=== PATIENT | male | born 1935 | race Caucasian/White ===

== ENCOUNTER 2019-08-10 09:36 | Outpatient (CLI) | payer MEDICARE, SELFPAY ==
[2019-08-10 09:49] LABS: Hematocrit 33.5 % (37.0-46.0); Hemoglobin 10.6 g/dL (12.4-15.3); Mean Corpuscular HGB Conc 31.6 g/dL (32.0-36.0); Mean Corpuscular Hemoglobin 29.6 pg (27.0-31.0); Mean Corpuscular Volume 93.6 fL (78.0-102.0); Mean Platelet Volume 9.4 fl (8.7-11.0); Platelet Count Result 224 K/mm3 (150-420); Red Blood Count 3.58 M/mm3 (4.70-6.10); Red Cell Distribution Width 14.2 % (11.6-14.4); White Blood Count 8.4 K/mm3 (4.8-10.8)
[2019-08-10 10:12] LABS: BNP 597 pg/mL (0-100)
[2019-08-10 10:59] LABS: Alanine Aminotransferase 34 U/L (16-63); Albumin Level 3.1 g/dL (3.4-5.0); Alkaline Phosphatase 307 U/L (46-116); Anion Gap 12.6 mmol/L (7-16); Aspartate Amino Transferase 30 U/L (15-37); Bilirubin,Total 0.8 mg/dL (0.00-1.00); Blood Urea Nitrogen 25 mg/dL (7-18); Calcium 8.9 mg/dL (8.5-10.1); Carbon Dioxide 29 mmol/L (21-32); Chloride 107 mmol/L (98-108); Estimated Glomerular Filt Rate 37; Glucose 92 mg/dL (70-99); Osmolality Calculated 302 mOsm/kg (285-295); Potassium 4.6 mmol/L (3.5-5.1); Sodium 144 mmol/L (136-145); Total Protein 7.3 g/dL (6.4-8.2)
== END 2019-08-10 09:37 | disposition home or self-care (01) ==
PROVIDERS: PCP Family Medicine; Visit Provider Family Medicine
DX: I10 Essential (primary) hypertension (principal)
CPT/HCPCS: 36415; 80053; 83880; 85027

== ENCOUNTER 2019-08-23 07:52 | Outpatient (CLI) | payer MEDICARE, SELFPAY ==
--- NOTE | 2019-08-23 07:58 | ECHO_ITS ---
Patient Info Name: Romie Yo Age: 84 years : 1935 Gender: Male Ht: 67 in Wt: 160 lbs BSA: 1.86 m2 HR: 61 bpm BP: 121 / 31 mmHg Heart Rhythm: Sinus Rhythm Technical Quality: Fair Exam Date: 08/23/2019 7:58 AM Exam Location: [facility] Patient Status: Outpatient Admit Date: 08/23/2019 Staff Ordering Physician: Ok Allen DO Oracle Technical Architect: Josselin Franklin RDCS Attending Provider: Ok Allen DO Referring Physician: Maria Elena STEPHENS Exam Type: CA echo doppler color flow Study Info Indications I50.9 - Heart failure, unspecified Complete two-dimensional, color flow and Doppler transthoracic echocardiogram is performed. Strain analysis performed. History/Risk Factors Hypertension: Yes Dyslipidemia: No Peripheral Arterial Disease (PAD): No Myocardial Infarction (NC): No Chronic Lung Disease: No Obesity: No Renal Disease: No Congestive Heart Failure (CHF): Hx CHF Cardiomyopathy/LV Systolic Dysfunction: No Diabetes Mellitus: No COPD: No Tobacco Use: Former Deep Vein Thrombosis (DVT): None Dialysis: None Frailty Scale (CSHA): 6: Moderately Frail Cardiac Arrest: No Prior Interventions Pacemaker: No PCI: No CABG: No Valve Surgery: No ICD: No PV Intervention: None Heart Transplant: No Summary 1. Left ventricular chamber dimension is normal. 2. Left ventricular systolic function is normal, estimated at 60-65%. 3. There is mildly increased left ventricular wall thickness. 4. The left ventricular diastolic function is normal. 5. E/e' 8 is minimally elevated. 6. Global longitudinal strain is normal at -25.2%. 7. Left atrial chamber dimension is moderately enlarged. 8. Right atrial chamber dimension is mildly enlarged. 9. There is mild mitral valve regurgitation, eccentric jet. 10. There is moderate tricuspid valve regurgitation. 11. Severe pulmonary hypertension, estimated pulmonary arterial systolic pressure is 74 mmHg. 12. Dilated inferior vena cava with >50% collapse upon inspiration consistent with elevated right atrial pressure, 10 mmHg. Left Ventricle E/e' 8 is minimally elevated. Global longitudinal strain is normal at -25.2%. Left ventricular chamber dimension is normal. Left ventricular systolic function is normal, estimated at 60-65%. There is mildly increased left ventricular wall thickness. The left ventricular diastolic function is normal. Right Ventricle Right ventricular chamber dimension is normal. Right ventricular systolic function is normal. Left Atria Left atrial chamber dimension is moderately enlarged. Right Atria Right atrial chamber dimension is mildly enlarged. Aortic Valve There is at least moderate aortic valve stenosis based on visual estimation only. No doppler evaluation of aortic valve to determine aortic valve area, velocity or gradients. The aortic valve is trileaflet. There is severe aortic valve sclerosis. There is mild aortic valve regurgitation. Pulmonic Valve There is no pulmonic regurgitation. Mitral Valve There is no mitral valve stenosis. There is mild mitral valve regurgitation, eccentric jet. Tricuspid Valve There is moderate tricuspid valve regurgitation. Severe pulmonary hypertension, estimated pulmonary arterial systolic pressure is 74 mmHg. Pericardium/Pleural There is no pericardial effusion. Inferior Vena Cava Dilated inferi
== END 2019-08-23 07:53 | disposition home or self-care (01) ==
LOC: CHSIMG 07:54
PROVIDERS: PCP Family Medicine; Visit Provider Family Medicine
DX: I50.9 Heart failure, unspecified (principal)
CPT/HCPCS: 93306

== ENCOUNTER 2019-09-18 11:07 | Outpatient (CLI) | payer MEDICARE, SELFPAY | END 2019-09-18 11:08 | disposition home or self-care (01) | LOC: CHSLAB 11:11 | PROVIDERS: PCP Family Medicine; Visit Provider Specialist | DX: C44.622 Squamous cell carcinoma of skin of right upper limb, including shoulder (principal); C44.529 Squamous cell carcinoma of skin of other part of trunk; C44.02 Squamous cell carcinoma of skin of lip | CPT/HCPCS: 88305 ==

== ENCOUNTER 2019-10-09 13:47 | Outpatient (CLI) | payer MEDICARE, SELFPAY | END 2019-10-09 13:48 | disposition home or self-care (01) | LOC: CHSLAB 13:50 | PROVIDERS: PCP Family Medicine; Visit Provider Specialist | DX: L01.00 Impetigo, unspecified (principal) | CPT/HCPCS: 87070; 87075; 87186; 87205 ==

== ENCOUNTER 2019-11-06 10:16 | Outpatient (CLI) | payer MEDICARE, SELFPAY | END 2019-11-06 10:17 | disposition home or self-care (01) | LOC: CHSLAB 10:20 | PROVIDERS: PCP Family Medicine; Visit Provider Specialist | DX: C44.319 Basal cell carcinoma of skin of other parts of face (principal) | CPT/HCPCS: 88305 ==

== ENCOUNTER 2020-01-22 10:09 | Outpatient (CLI) | payer MEDICARE, SELFPAY | END 2020-01-22 10:10 | disposition home or self-care (01) | LOC: CHSLAB 10:13 | PROVIDERS: PCP Family Medicine; Visit Provider Specialist | DX: C44.622 Squamous cell carcinoma of skin of right upper limb, including shoulder (principal); C44.629 Squamous cell carcinoma of skin of left upper limb, including shoulder; C44.319 Basal cell carcinoma of skin of other parts of face | CPT/HCPCS: 88305 ==

== ENCOUNTER 2020-07-22 11:40 | Outpatient (NON) | payer MEDICARE, SELFPAY | END 2020-07-22 11:41 | disposition home or self-care (01) | LOC: CHSLAB 11:41 | PROVIDERS: Visit Provider Family Medicine | DX: L57.0 Actinic keratosis (principal) | CPT/HCPCS: 88305 ==

== ENCOUNTER 2020-08-06 15:24 | Emergency (ER) | payer MEDICARE, SELFPAY ==
--- NOTE | ~2020-08-06 | XR_ITS ---
EXAMINATION: [id number] INDICATION: Severe right rib pain TECHNIQUE: A frontal view of the chest and 3 views of the right ribs were obtained. COMPARISON: 09/27/2018 FINDINGS: The chin projects over the right lung apex on the AP view. The lungs are free of acute opac ities. There is no pleural effusion or pneumothorax. There is questionable fracture at the lateral as pect of the right eighth rib. Surgical clips in the right upper quadrant are likely from prior cholec ystectomy. IMPRESSION: 1. Possible right eighth rib fracture. No acute cardiopulmonary abnormality. Reviewed, dictated and finalized at location A.
[2020-08-06 15:46] VITALS: BP 144/81; PULSE 73; RESP 16; TEMP 36.6; O2SAT 97
[2020-08-06] MEDS: MORPHINE SULFATE (*CRX) 4 MG/ML INJ IM (16:03)
--- NOTE | 2020-08-06 16:20 | ED.GENADULT ---
HPI - General Adult General Chief complaint: Back Pain/Injury Stated complaint: rib pain Source: patient Mode of arrival: ambulatory Limitations: no limitations History of Present Illness HPI narrative: Romie is an 85M with a complex PMH that presented to the ED with right rib pain. The pain started 5 nights ago but has been bad since. Earlier that day he moved some heavy bags of bird feed and it started to hurt that night. It is a sharp pain in his right anterior ribs that is worse with movement and deep inspiration. No alleviating factors. He has never had anything like this before. Related Data Home Medications Medication Instructions Recorded Confirmed multivitamin 1 tablet PO DAILY 10/09/19 08/06/20 turmeric root extract 500 mg 500 mg PO BID 10/09/19 08/06/20 capsule Allergies Allergy/AdvReac Type Severity Reaction Status Date / Time No Known Allergies Allergy Verified 07/22/20 06:55 Review of Systems Constitutional: Constitutional: Denies chills, Denies fever(s) and Denies weakness Eyes: Eyes: Reports no additional eye complaints ENT: Reports system reviewed and no additional complaints, except as documented Cardiovascular: Cardiovascular: Reports no additional cardiovascular complaints Respiratory: Respiratory: Reports no additional respiratory complaints Gastrointestinal: Gastrointestinal: Reports no additional gastrointestinal complaints, Denies abdominal pain, Denies diarrhea, Denies nausea and Denies vomiting Genitourinary: Genitourinary: Reports no additional male genitourinary complaints Musculoskeletal: Musculoskeletal: Reports as per HPI Integumentary/Breasts: Skin/Breast: Reports system reviewed and no additional complaints, except as docu Neurologic: Reports system reviewed and no additional complaints, except as documented Psychiatric: Psychiatric: Reports no additional psychiatric complaints Endocrine: Endocrine: Reports no additional endocrine complaints Hematologic/Lymphatic: Hematologic/Lymphatic: Reports no additional hematologic/lymphatic complaints Allergic/Immunologic: Allergic/Immunologic: Reports no additional allergic/immunologic complaints [facility] Past Medical History Medical History (Updated 08/06/20 @ 16:57 by Ok Allen DO) History of cerebrovascular accident Hypertension ARLINE (obstructive sleep apnea) Surgical History Surgical History History of right hip replacement Social History Social History Smoking status: Never smoker Additional living arrangements comments: . Lives in [place] throught the winter. Exam Const: General: alert Orientation/consciousness: patient oriented x3 Limitations: altered mental status Other: Pain seems to wax and wane but at times he moans and moves rhythmically to try and alleviate the pain. HENMT: Head: normal to inspection Other: atraumatic Eyes: Conjunctivae: conjunctivae normal Pupils: Equal, round and reactive pupils present Neck: Neck: normal visual inspection Chest: Chest palpation & inspection: other (Right lower ribs were very TTP ) Resp: Effort & Inspection: normal respiratory effort Auscultation: clear to auscultation bilaterally Cardio: Rate: regular rate Rhythm: regular rhythm GI: Inspection: non-distended GI Palp: Yes Soft to palpation, No Tenderness to palpation present (GI) and No Guarding due to palpation present (GI) Back/Spine/Pelvis: Back: no CVA tenderness Skin: General skin exam: normal color Rashes: no rashes Neuro: General: patient oriented x3 and moves all extremities Extrem: General: normal to inspection Psych: Appearance: grossly normal Mental Status: mental status grossly normal Affect: normal affect Thought content: Yes Normal thought content present Course Course Emergency Course: Romie was given morphine for the pain and radiographs
[2020-08-06 16:59] VITALS: BP 156/67; PULSE 76; RESP 14; TEMP 36.1; O2SAT 98
[2020-08-06] MEDS: CYCLOBENZAPRINE HCL 10 MG TABLET PO (16:59)
== END 2020-08-06 17:17 | disposition home or self-care (01) ==
PROVIDERS: Emergency Provider Family Medicine; PCP Family Medicine
DX: S22.31XA Fracture of one rib, right side, initial encounter for closed fracture (principal)
CPT/HCPCS: 71101; 96372; 99283; A9270; J2270

== ENCOUNTER 2020-08-25 15:07 | Outpatient (NON) | payer MEDICARE, SELFPAY | END 2020-08-25 15:08 | disposition home or self-care (01) | LOC: CHSLAB 15:08 | PROVIDERS: PCP Family Medicine; Visit Provider Family Medicine | DX: C44.629 Squamous cell carcinoma of skin of left upper limb, including shoulder (principal) | CPT/HCPCS: 88305 ==

== ENCOUNTER 2020-09-01 15:34 | Outpatient (NON) | payer MEDICARE, SELFPAY | END 2020-09-01 15:35 | disposition home or self-care (01) | LOC: CHSLAB 15:38 | PROVIDERS: PCP Family Medicine; Visit Provider Family Medicine | DX: C76.42 Malignant neoplasm of left upper limb (principal) | CPT/HCPCS: 88305 ==

== ENCOUNTER 2020-10-13 16:35 | Inpatient (IN) | payer MEDICARE, SELFPAY ==
[2020-10-13] VITALS (10 sets, daily range): BP systolic 105–158; BP diastolic 47–81; PULSE 77–90; RESP 16–22; TEMP 36.4–36.9; O2SAT 96–100; BMI 29.2
--- NOTE | ~2020-10-13 | CT_ITS ---
EXAMINATION: CT brain wo con INDICATION: Weakness COMPARISON: 02/18/2011 TECHNIQUE: Standard unenhanced head CT. The dose-length product (DLP) was 681.00 mGy-cm. The mA was a djusted according to patient size. Iterative reconstruction technique was employed. FINDINGS: There is no acute intraparenchymal hemorrhage. No evidence of mass lesion. No evidence of a cute infarction. There are old lacunar infarcts of the basal ganglia. There is mild periventricular a nd subcortical hypodensity probably related to small vessel ischemic disease. There is mild prominenc e of the sulci and ventricles related to cerebral atrophy. Intracranial calcified cerebral atheroscle rosis is noted. There are no extra-axial collections. There is no mass effect or midline shift. The o rbits and soft tissues are unremarkable. There is mild mucosal thickening of the paranasal sinuses. IMPRESSION: 1. Areas of prior infarction without acute intracranial abnormality. 2. Age related findings. Reviewed, dictated and finalized at location A.
--- NOTE | ~2020-10-13 | XR_ITS ---
EXAMINATION: XR chest 2V DATE: 10/13/2020 18:29 INDICATION: Weakness TECHNIQUE: AP and lateral views of the chest are obtained. COMPARISON: 09/27/2018 FINDINGS: There is atelectasis of the lung bases. There is no pleural effusion or pneumothorax. The c ardiomediastinal silhouette is normal. There is a chronic compression fracture in the midthoracic spi ne. Surgical clips in the right upper quadrant are likely from prior cholecystectomy. IMPRESSION: 1. No acute cardiopulmonary abnormality. Reviewed, dictated and finalized at location A.
--- NOTE | 2020-10-13 16:57 | ED.WEAKNESS ---
HPI - Weakness General Chief complaint: Weakness Stated complaint: amb Time Seen by Provider: 10/13/20 16:57 Source: patient and family Mode of arrival: EMS Limitations: no limitations History of Present Illness HPI Narrative: 85-year-old man with a history of chronic kidney disease and CVA brought to the emergency department by EMS after family found him to be weak. Daughter who takes care of him was having difficulty getting him up today. 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 Denies cough or cold symptoms, sore throat, difficulty breathing, chest pain, vomiting, diarrhea, abdominal pain, dysuria or hematuria. Patient has been vaccinated for COVID and influenza. MD Complaint: generalized weakness Onset (ago): day(s) (1) Duration: constant and progressively worsening Location: generalized Migration: none Severity: moderate Relieving factors: none Exacerbating factors: none Context: new medication Associated symptoms: denies other symptoms Related Data Home Medications Medication Instructions Recorded Confirmed multivitamin 1 tablet PO DAILY 10/09/19 10/13/20 turmeric root extract 500 mg 500 mg PO BID 10/09/19 10/13/20 capsule gabapentin 300 mg PO TID 10/13/20 10/13/20 Allergies Allergy/AdvReac Type Severity Reaction Status Date / Time No Known Allergies Allergy Verified 10/09/20 07:16 Review of Systems Review of Systems: All systems reviewed & are unremarkable except as noted in HPI and below Constitutional: Constitutional: Denies chills, Denies fever(s) and Reports weakness Eyes: Eyes: Denies change in vision and Denies photophobia ENT: Denies dysphagia, Denies nasal congestion and Denies sore throat Cardiovascular: Cardiovascular: Denies chest pain and Denies radiating jaw, neck or arm pain Respiratory: Respiratory: Denies cough and Denies dyspnea Gastrointestinal: Gastrointestinal: Denies abdominal pain, Denies diarrhea, Denies nausea and Denies vomiting Genitourinary: Genitourinary: Denies hematuria, Denies dysuria and Denies urinary frequency Musculoskeletal: Musculoskeletal: Denies back pain, Denies arthralgias and Denies joint swelling Integumentary/Breasts: Skin/Breast: Denies pruritus, Denies erythema and Denies rash Neurologic: Denies vertigo, Denies dizziness, Denies syncope, Reports focal weakness ( right facial paresis for last 3 weeks) and Denies numbness Endocrine: Endocrine: Denies polydipsia and Denies polyuria Hematologic/Lymphatic: Hematologic/Lymphatic: Denies easy bleeding and Denies easy bruising Allergic/Immunologic: Allergic/Immunologic: Denies lip swelling and Denies throat swelling PMF Past Medical History Medical History (Updated 10/13/20 @ 21:52 by Vincent Marte MD) History of cerebrovascular accident Hypertension ARLINE (obstructive sleep apnea) Surgical History Surgical History History of right hip replacement Social History Social History Smoking status: Never smoker Additional living arrangements comments: . Lives in [place] throught the winter. Exam Const: General: no acute distress and alert Orientation/consciousness: patient oriented x3 HENMT: Ears: TM's normal bilaterally and EAC's normal Mouth: Yes moist mucous membranes Throat: posterior oropharynx normal Other: right facial droop Eyes: Conjunctivae: conjunctivae normal Pupils: Equal, round and reactive pupils present EOM: EOMs intact bilaterally Resp: Effort & Inspection: normal respiratory effort and not labored Auscultation: clear to auscultation bilaterally, no rales, no rhonchi and no wheezes Cardio: Rate: regular rate Rhythm: regular rhythm Heart sounds: no murmurs GI: GI Palp: Yes Soft to palpation, No Tenderness to palpation present (GI) and No Guarding due to palpation present
--- NOTE | 2020-10-13 17:09 | ECG_ITS ---
Measurements Intervals [place] Rate: 88 P: NE: 0 QRS: -35 QRSD: 105 T: 32 QT: 360 QTc: 436 Interpretive Statements SINUS RHYTHM SUPRAVENTRICULAR BIGEMINY LEFT AXIS DEVIATION INCOMPLETE RIGHT BUNDLE BRANCH BLOCK DELAYED PRECORDIAL R/S TRANSITION BASELINE WANDER- V4-V6 ABNORMAL ECG Electronically Signed On 10-13-2020 22:19:24 CDT by Luis Daniel Mcmahon D.O.
[2020-10-13 17:39] LABS: Basophils Absolute Auto 0.04 K/mm3 (0.00-0.10); Basophils Percent Auto 0.3 % (0.0-1.0); Eosinophils Absolute Auto 0.37 K/mm3 (0.02-0.50); Eosinophils Percent Auto 3.1 % (1.0-6.0); Hematocrit 31.3 % (37.0-46.0); Hemoglobin 10.3 g/dL (12.4-15.3); Immature Granulocyte Absolute 0.07 K/mm3 (0.00-0.00); Immature Granulocyte Percent A 0.6 % (0.0-0.0); Lymphocytes Absolute Auto 1.63 K/mm3 (1.10-4.50); Lymphocytes Percent Auto 13.6 % (18.0-42.0); Mean Corpuscular HGB Conc 32.9 g/dL (32.0-36.0); Mean Corpuscular Hemoglobin 30.6 pg (27.0-31.0); Mean Corpuscular Volume 92.9 fL (78.0-102.0); Mean Platelet Volume 9.8 fl (8.7-11.0); Monocytes Absolute Auto 0.62 K/mm3 (0.10-0.90); Monocytes Percent Auto 5.2 % (2.0-11.0); Neutrophils Absolute Auto 9.3 K/mm3 (1.7-7.2); Neutrophils Percent Auto 77.2 % (50.0-70.0); Platelet Count Result 226 K/mm3 (150-420); Red Blood Count 3.37 M/mm3 (4.70-6.10); Red Cell Distribution Width 16.3 % (11.6-14.4)
[2020-10-13 17:54] LABS: INR 1.1; Partial Thromboplastin Time 30.2 SEC (23.90-30.70); Prothrombin Time 11.2 Seconds (9.50-12.10)
[2020-10-13 17:56] LABS: SARS-CoV-2 Ag Negative (Negative)
[2020-10-13 18:00] LABS: Lactic Acid Reflex 1.3 mmol/L (0.4-2.0)
[2020-10-13 18:05] LABS: Alanine Aminotransferase 40 U/L (16-63); Albumin Level 2.5 g/dL (3.4-5.0); Alkaline Phosphatase 97 U/L (46-116); Anion Gap 9 mmol/L (8-16); Aspartate Amino Transferase 26 U/L (15-37); Bilirubin,Total 0.5 mg/dL (0.00-1.00); Blood Urea Nitrogen 40 mg/dL (7-18); CRP 5.6 mg/dL (0.0-0.9); Calcium 8.6 mg/dL (8.5-10.1); Carbon Dioxide 30 mmol/L (21-32); Chloride 105 mmol/L (98-108); Estimated CRCL calculation 19 ml/min; Estimated Glomerular Filt Rate 25; Glucose 121 mg/dL (70-99); Osmolality Calculated 308 mOsm/kg (285-295); Potassium 4.8 mmol/L (3.5-5.1); Sodium 144 mmol/L (136-145); Total Protein 6.4 g/dL (6.4-8.2)
[2020-10-13 18:07] LABS: Thyroid Stimulating Hormone Reflex 1.09 u/IU/mL (0.36-3.74)
[2020-10-13 18:08] LABS: Troponin I 41.3 ng/L (0.00-60.4)
[2020-10-13 18:08] LABS: NT Pro B Type Natriuretic Pept 745 pg/mL (0-450)
[2020-10-13 19:06] LABS: Add Urine Microscopic? YES; Appearance Urine Clear (Clear); Bilirubin Urine Negative (Negative); Blood Urine 1+ (Negative); Color Urine Light Yellow (Yellow); Glucose Urine UA Negative (Negative); Ketones Urine Negative (Negative); Leukocyte Esterase Ur Negative LEU/UL (Negative); Nitrate Urine Negative (Negative); Protein Urine Negative (Negative); Urobilinogen Urine 0.2 mg/dL (0.2-1.0)
[2020-10-13 19:10] LABS: Bacteria Urine Trace /hpf; WBC Urine 0-3 /hpf (0-3)
--- NOTE | 2020-10-13 19:24 | PC.NURSE ---
REPORT TO CELY TORO
[2020-10-13] MEDS: HEPARIN SODIUM 5,000 UNITS/ML VIAL 6000 UNITS IV PUSH (20:05)
[2020-10-13] MEDS: HEPARIN SOD/D5W 100 UNITS/ML 25,000 UNITS/250 ML BAG 12 UNITS IV CONT (20:40)
--- NOTE | 2020-10-13 21:09 | ECG_ITS ---
Measurements Intervals [place] Rate: 89 P: ND: 0 QRS: -39 QRSD: 92 T: 50 QT: 339 QTc: 413 Interpretive Statements SINUS RHYTHM FREQUENT ATRIAL PREMATURE COMPLEXES LEFT AXIS DEVIATION INCOMPLETE RIGHT BUNDLE BRANCH BLOCK DELAYED PRECORDIAL R/S TRANSITION BASELINE ARTIFACT- I, II, III, AVR, AVL, AVF, V1-V6 ABNORMAL ECG Electronically Signed On 10-13-2020 22:20:50 CDT by Luis Daniel Mcmahon D.O.
[2020-10-13] MEDS: SODIUM CHLORIDE 0.9% IV 1,000 ML 100 ML IV CONT (21:30)
[2020-10-13] MEDS: CLINDAMYCIN 300 MG in DEXTROSE 5% IN WATER 50 ML 104 MG IVPB (21:40)
[2020-10-13] MEDS: WARFARIN (*PBKC) 5 MG TABLET PO (21:50)
--- NOTE | 2020-10-13 23:22 | ADMGEN ---
This patient, Romie Yo, was admitted to 2nd Floor Room 210-2. Patient/family oriented to hospital policies and general routines including ID bracelet, bed and alarms, visiting hours, pain management, procedures, bathroom and other care routines, personal items, smoking policy, room service/diet, and visiting hours. Information on how to activate the Rapid Response Team has been discussed. Patient/Family are encouraged to report perceived risks to care and to ask questions if they do not understand what they are told or what they should do. Patient had wallet with $332.00. Given to admissions to put in safe.
[2020-10-14] VITALS (10 sets, daily range): BP systolic 112–152; BP diastolic 43–83; PULSE 72–112; RESP 14–22; TEMP 36.5–37; O2SAT 89–96
--- NOTE | 2020-10-14 01:25 | PC.NURSE ---
Up to toilet with walker and SBA. Has kyphosis. Both feet red, warm to touch with +3 pitting edema. Small open area on LLE. Positioned in bed for comfort. Call light in reach.
--- NOTE | 2020-10-14 03:30 | PC.NURSE ---
[facility] consulted regarding pt's clindamyacin dose.
--- NOTE | 2020-10-14 03:33 | PC.NURSE ---
Spoke to Dr. Marte regarding pt's clindamyacin dose; New orders received and noted.
[2020-10-14] MEDS: CLINDAMYCIN 600 MG/D5W 50 ML 600 MG/50 ML PIGGYBACK 100 MG IVPB ×3 (03:55→20:18)
[2020-10-14 05:42] LABS: Basophils Absolute Auto 0.06 K/mm3 (0.00-0.10); Basophils Percent Auto 0.7 % (0.0-1.0); Eosinophils Percent Auto 4.5 % (1.0-6.0); Hematocrit 31.1 % (37.0-46.0); Hemoglobin 9.9 g/dL (12.4-15.3); Immature Granulocyte Absolute 0.06 K/mm3 (0.00-0.00); Immature Granulocyte Percent A 0.7 % (0.0-0.0); Lymphocytes Absolute Auto 1.99 K/mm3 (1.10-4.50); Lymphocytes Percent Auto 22.3 % (18.0-42.0); Mean Corpuscular HGB Conc 31.8 g/dL (32.0-36.0); Mean Corpuscular Hemoglobin 30.2 pg (27.0-31.0); Mean Corpuscular Volume 94.8 fL (78.0-102.0); Mean Platelet Volume 9.8 fl (8.7-11.0); Monocytes Absolute Auto 0.45 K/mm3 (0.10-0.90); Neutrophils Percent Auto 66.8 % (50.0-70.0); Platelet Count Result 202 K/mm3 (150-420); Red Blood Count 3.28 M/mm3 (4.70-6.10); Red Cell Distribution Width 16.3 % (11.6-14.4); White Blood Count 8.9 K/mm3 (4.8-10.8)
[2020-10-14 05:57] LABS: Lactic Acid Reflex 1.1 mmol/L (0.4-2.0)
[2020-10-14 06:04] LABS: Alanine Aminotransferase 40 U/L (16-63); Albumin Level 2.5 g/dL (3.4-5.0); Alkaline Phosphatase 93 U/L (46-116); Anion Gap 10 mmol/L (8-16); Aspartate Amino Transferase 28 U/L (15-37); Bilirubin,Total 0.7 mg/dL (0.00-1.00); Blood Urea Nitrogen 39 mg/dL (7-18); Calcium 8.6 mg/dL (8.5-10.1); Carbon Dioxide 28 mmol/L (21-32); Chloride 107 mmol/L (98-108); Estimated CRCL calculation 20 ml/min; Estimated Glomerular Filt Rate 27; Glucose 103 mg/dL (70-99); Osmolality Calculated 309 mOsm/kg (285-295); Potassium 4.7 mmol/L (3.5-5.1); Sodium 145 mmol/L (136-145); Total Protein 6.3 g/dL (6.4-8.2)
--- NOTE | 2020-10-14 07:00 | ECHO_ITS ---
Patient Info Name: Romie Yo Age: 85 years : 1935 Gender: Male Ht: 63 in Wt: 165 lbs BSA: 1.85 m2 HR: 94 bpm BP: 115 / 50 mmHg Technical Quality: Fair Exam Date: 10/14/2020 2:12 PM Exam Location: [facility] Patient Status: Inpatient Admit Date: 10/13/2020 Staff Ordering Physician: Vincent Marte MD Barrel Painter: Emiliano Leger RDCS, RT Attending Provider: Vincent Marte MD Referring Physician: Estuardo DAVIES; Exam Type: CA echo doppler color flow Study Info Indications I48.1 - Persistent atrial fibrillation Complete two-dimensional, color flow and Doppler transthoracic echocardiogram is performed. Strain analysis performed. History/Risk Factors Hypertension: Yes Dyslipidemia: No Peripheral Arterial Disease (PAD): No Myocardial Infarction (MN): No Chronic Lung Disease: No Obesity: No Renal Disease: No Congestive Heart Failure (CHF): Hx CHF Cardiomyopathy/LV Systolic Dysfunction: No Diabetes Mellitus: No COPD: No Tobacco Use: Former Deep Vein Thrombosis (DVT): None Dialysis: None Frailty Scale (CSHA): 6: Moderately Frail Cardiac Arrest: No Prior Interventions Pacemaker: No PCI: No CABG: No Valve Surgery: No ICD: No PV Intervention: None Heart Transplant: No Summary 1. Complete two-dimensional, color flow and Doppler transthoracic echocardiogram is performed. 2. Left ventricular chamber dimension is normal. 3. Left ventricular systolic function is normal, estimated at 60-65%. 4. There is mildly increased left ventricular wall thickness. 5. The left ventricular diastolic function is normal. 6. E/e' 9 is minimally elevated. 7. Global longitudinal strain is normal at -17.4%. 8. Atrial fibrillation. 9. Left atrial chamber dimension is mildly enlarged. 10. There is severe aortic valve sclerosis. 11. There is moderate to severe aortic valve stenosis with a peak velocity of 305 cm/s, mean gradient of 17 mmHg, and aortic valve area of 1.0 cm2. 12. There is trace aortic valve regurgitation. 13. The mitral valve has moderately calcified annulus. 14. There is mild mitral valve regurgitation. 15. Moderate pulmonary hypertension, estimated pulmonary arterial systolic pressure is 59 mmHg. 16. Dilated inferior vena cava with >50% collapse upon inspiration consistent with elevated right atrial pressure, 10 mmHg. Left Ventricle E/e' 9 is minimally elevated. Global longitudinal strain is normal at -17.4%. Atrial fibrillation. Left ventricular chamber dimension is normal. Left ventricular systolic function is normal, estimated at 60-65%. There is mildly increased left ventricular wall thickness. The left ventricular diastolic function is normal. Right Ventricle Right ventricular systolic function is normal and with normal TAPSE 2.7 cm. Right ventricular chamber dimension is normal. Left Atria Left atrial chamber dimension is mildly enlarged. Right Atria Right atrial chamber dimension is normal. Aortic Valve The aortic valve is not well visualized. There is severe aortic valve sclerosis. There is moderate to severe aortic valve stenosis with a peak velocity of 305 cm/s, mean gradient of 17 mmHg, and aortic valve area of 1.0 cm2. There is trace aortic valve regurgitation. Pulmonic Valve There is no pulmonic regurgitation. Mitral Valve The mitral valve has moderately calcified annulus. There is no mitral valve stenosis
[2020-10-14] MEDS: FINASTERIDE 5 MG TABLET PO (08:52)
[2020-10-14] MEDS: TAMSULOSIN HCL 0.4 MG CAPSULE PO (08:52)
[2020-10-14] MEDS: MULTIVITAMINS THERAPEUTIC TAB (*BKC) 1 TABLET PO (08:52)
--- NOTE | 2020-10-14 09:28 | PC.NURSE ---
Patient up in room with walker, gait belt on, advised to not get up alone, states tired of sitting around, assisted back to chair, no injury, states he walks at home and can walk here, reminded of IVF's attached to arm and chance of it coming out if get up without assistance, call leila mohan
[2020-10-14 10:19] LABS: NT Pro B Type Natriuretic Pept 656 pg/mL (0-450)
--- NOTE | 2020-10-14 10:39 | PM.IMHP ---
H&P: HPI History of Present Illness Date/Time: 10/14/20 10:39 this is a 85-year-old male who presented to emergency department with generalized weakness patient has a past medical history of CVA, hypertension, ARLINE and Wagoner's palsy. According to patient he normally uses a walker at home. Yesterday he went to the restroom and when he got up from the toilet he was unable to move at that point his daughter brought him here to our emergency department. Patient feels as of he should not be here he is anxious to discharge home. He denies any change in his condition prior to being unable to ambulate. It was documented that he had recently started gabapentin by his primary care physician due to Wagoner's palsy to treat right side ear and jaw pain. Vital signs 137/70, 90, 14, 98.4, 93% on room air, WBCs 12.0, hemoglobin 10.3, hematocrit 31.3, platelets 226, sodium 145, potassium 4.7, BUN 39, creatinine 2.34, glucose 103, lactic acid 1.1, CRP 5.6 BNP 745, Covid negative, chest x-ray unremarkable, CT of the head no new findings. Patient being admitted for cellulitis of the lower extremities and acute kidney injury.. Patient's only complaint is he did not get any sleep overnight , he still continues to have right side ear I in jaw pain caused by Wagoner's palsy he is requesting that IV fluid be discharged continue. Warfarin discontinued EKG sinus rhythm with a heart rate of 89 no A. fib indicated Time spent 60 minutes Disposition: Discharge home <GUNNER De Souza - Last Filed: 10/14/20 11:49> Chief Complaint: Generalized weakness <GUNNER De Souza - Last Filed: 10/14/20 11:49> Review of Systems Review of Systems: Narrative: A 14 organ system Review of Systems was performed and pertinent positives included in the HPI, otherwise remaining ROS is negative. <GUNNER De Souza - Last Filed: 10/14/20 11:49> [facility] Past Medical History Medical History: Medical History (Updated 10/13/20 @ 21:52 by Vincent Marte MD) History of cerebrovascular accident Hypertension ARLINE (obstructive sleep apnea) <GUNNER De Souza - Last Filed: 10/14/20 11:49> Surgical History Surgical History: Surgical History History of right hip replacement <GUNNER De Souza - Last Filed: 10/14/20 11:49> Social History Social History: Social History Smoking status: Never smoker Alcohol intake: former Substance use: never Substance use type: does not use Additional living arrangements comments: . Lives in [place] throught the winter. Gender identity (if verbalized by the patient): Male Sexual Orientation (if Verbalized by the Patient): Straight or Heterosexual Spiritual care concerns: No <GUNNER De Souza - Last Filed: 10/14/20 11:49> Meds Home Medications and Allergies Home medications: Home Medications Medication Instructions Recorded Confirmed Type multivitamin 1 tablet PO DAILY 10/09/19 10/13/20 History turmeric root extract 500 mg 500 mg PO BID 10/09/19 10/13/20 History capsule artifi.tears(hypromellose)(PF) 1.7 1 drp RIGHT EYE Q1-2H PRN #12 ml 09/24/20 10/13/20 Rx % eye drops with applicator clopidogrel 75 mg tablet See Rx Instructions .ROUTE 10/10/20 10/13/20 Rx .COMPLEX #90 tablet finasteride 5 mg tablet 5 mg PO DAILY #90 tablet 10/10/20 10/13/20 Rx furosemide 40 mg tablet 40 mg PO QAM #90 tablet 10/10/20 10/13/20 Rx losartan 25 mg tablet See Rx Instructions .ROUTE 10/10/20 10/13/20 Rx .COMPLEX #90 tablet tamsulosin 0.4 mg capsule See Rx Instructions .ROUTE 10/10/20 10/13/20 Rx .COMPLEX #90 cap gabapentin 300 mg PO TID 10/13/20 10/13/20 History <GUNNER De Souza - Last Filed: 10/14/20 11:49> Allergies/Adverse reactions: Allergies Allergy/AdvReac Type Severity Reaction Status Date / Time No Known Allergies All
[2020-10-14] MEDS: predniSONE 20 MG TABLET 50 MG PO (11:22)
--- NOTE | 2020-10-14 13:29 | PC.NURSE ---
Up to bathroom with use of walker and SBA, incontinent of urine, will sit for a while to try to void more, instructed to pull red cord when done, family in room
[2020-10-14] MEDS: GABAPENTIN 100 MG CAPSULE PO ×2 (13:39→17:29)
[2020-10-14] MEDS: ARTIFICIAL TEARS OPHTH SOLN 15 ML BOTTLE 1 DROP EACH EYE (13:44)
[2020-10-15] VITALS: BP 133/72; PULSE 82; RESP 20; TEMP 37; O2SAT 94
[2020-10-15] MEDS: CLINDAMYCIN 600 MG/D5W 50 ML 600 MG/50 ML PIGGYBACK 100 MG IVPB ×2 (03:34→12:11)
[2020-10-15 04:00] VITALS: BP 140/67; PULSE 82; RESP 20; TEMP 36.8; O2SAT 93
[2020-10-15 05:24] LABS: Hematocrit 30.6 % (37.0-46.0); Hemoglobin 9.9 g/dL (12.4-15.3); Mean Corpuscular HGB Conc 32.4 g/dL (32.0-36.0); Mean Corpuscular Hemoglobin 30.5 pg (27.0-31.0); Mean Corpuscular Volume 94.2 fL (78.0-102.0); Mean Platelet Volume 9.6 fl (8.7-11.0); Platelet Count Result 193 K/mm3 (150-420); Red Blood Count 3.25 M/mm3 (4.70-6.10); Red Cell Distribution Width 16.1 % (11.6-14.4); White Blood Count 18.5 K/mm3 (4.8-10.8)
[2020-10-15 05:36] LABS: INR 1.1; Prothrombin Time 11.6 Seconds (9.50-12.10)
[2020-10-15 05:41] LABS: Alanine Aminotransferase 50 U/L (16-63); Albumin Level 2.4 g/dL (3.4-5.0); Alkaline Phosphatase 91 U/L (46-116); Anion Gap 9 mmol/L (8-16); Aspartate Amino Transferase 30 U/L (15-37); Bilirubin,Total 0.7 mg/dL (0.00-1.00); Blood Urea Nitrogen 38 mg/dL (7-18); Calcium 8.7 mg/dL (8.5-10.1); Carbon Dioxide 28 mmol/L (21-32); Chloride 107 mmol/L (98-108); Estimated CRCL calculation 23 ml/min; Estimated Glomerular Filt Rate 31; Glucose 115 mg/dL (70-99); Osmolality Calculated 308 mOsm/kg (285-295); Potassium 4.8 mmol/L (3.5-5.1); Sodium 144 mmol/L (136-145); Total Protein 6.2 g/dL (6.4-8.2)
[2020-10-15 08:00] VITALS: BP 133/80; PULSE 86; RESP 18; RESP 22; TEMP 36.6; O2SAT 95
[2020-10-15] MEDS: GABAPENTIN 100 MG CAPSULE PO ×2 (09:23→12:11)
[2020-10-15] MEDS: FINASTERIDE 5 MG TABLET PO (09:24)
[2020-10-15] MEDS: TAMSULOSIN HCL 0.4 MG CAPSULE PO (09:24)
[2020-10-15] MEDS: MULTIVITAMINS THERAPEUTIC TAB (*BKC) 1 TABLET PO (09:24)
[2020-10-15] MEDS: FUROSEMIDE 20 MG TABLET PO (09:24)
--- NOTE | 2020-10-15 10:44 | P.DS_ITS ---
DS: Admitting Diagnosis Admitting Diagnosis Weakness and cellulitis <Abril Diez GUNNER - Last Filed: 10/15/20 14:11> DS: Discharge Diagnosis Discharge Diagnosis (1) Weakness: Code(s): R53.1 - Weakness <GUNNER De Souza - Last Filed: 10/15/20 14:11> Status: Acute <GUNNER De Souza - Last Filed: 10/15/20 14:11> Assessment and Plan: * Possibly secondary to infection * PT OT started * Exhibit tolerance during physical activity as evidenced by a normal fluctuation of vital signs during physical activity. ? Patient will discharge home with custodial and PT OT <GUNNER De Souza - Last Filed: 10/15/20 14:11> (2) STEVEN (acute kidney injury): Code(s): N17.9 - Acute kidney failure, unspecified <Abril Diez GUNNER - Last Filed: 10/15/20 14:11> Status: Acute <Abril Diez GUNNER - Last Filed: 10/15/20 14:11> Assessment and Plan: * Creatinine on admission2.50>2.34 >2.05baseline appears to be at 1.70 improving * Possibly secondary to infection versus increased use of Lasix Lasix doubled on 10/09 * Will continue to monitor * Renal dose medication * <Abril Diez GUNNER - Last Filed: 10/15/20 14:11> (3) Cellulitis and abscess of left lower extremity: Code(s): L03.116 - Cellulitis of left lower limb; L02.416 - Cutaneous abscess of left lower limb <Abril Diez GUNNER - Last Filed: 10/15/20 14:11> Status: Acute <Abril Diez GUNNER Last Filed: 10/15/20 14:11> Assessment and Plan: * Continue clindamycin day 3 * CRP elevated at 5.6 * BNP 745 * Once renal function improves will possibly consider Lasix * Patient presented to his primary care physician's office on 09/23/2020 for venous ulcers on his left lower extremity discharge per wound care. 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 <Abril MaresZuleyma Diez HYDROSTATIC TESTERBuzzCosta - Last Filed: 10/15/20 14:11> Status: Acute <Abril Diez GUNNER - Last Filed: 10/15/20 14:11> Assessment and Plan: * Continue gabapentin at 100 mg 3 times daily * Will continue to monitor * On 09/23 patient was treated for Wagoner's palsy with valacyclovir 1000 mg 3 times daily x7 days, prednisone 60 mg daily x7 days artificial tears, and taping of eye <Abril MaresZuleyma Diez GUNNER - Last Filed: 10/15/20 14:11> (5) Hypertension: Code(s): I10 - Essential (primary) hypertension <Abril MaresZuleyma Diez GUNNER - Last Filed: 10/15/20 14:11> Status: Chronic <Abril Diez MICHELLECosta - Last Filed: 10/15/20 14:11> Assessment and Plan: * Stable * Echo indicated severe pulmonary hypertension * No home medication <Abril Diez GUNNER - Last Filed: 10/15/20 14:11> (6) History of cerebrovascular accident: Code(s): Z86.73 - Personal history of transient ischemic attack (TIA), and cerebral infarction without residual deficits <Abril MaresZuleyma Diez GUNNER - Last Filed: 10/15/20 14:11> Status: Resolved <Abril MaresZuleyma Diez HYDROSTATIC TESTERBuzzCosta - Last Filed: 10/15/20 14:11> Assessment and Plan: * Right-sided facial drooping * PT OT <Clydesyl SuzanZuleyma Diez HYDROSTATIC TESTERCamille - Last Filed: 10/15/20 14:11> (7) ARLINE (obstructive sleep apnea): Code(s): Kamila
--- NOTE | 2020-10-15 10:44 | PM.DS ---
DS: Admitting Diagnosis Admitting Diagnosis Weakness and cellulitis <Clydesyl SuzanESTEFANIA HarmonBuzzCosta - Last Filed: 10/15/20 14:11> DS: Discharge Diagnosis Discharge Diagnosis (1) Weakness: Code(s): R53.1 - Weakness <Abril DiezESTEFANIABuzzCosta - Last Filed: 10/15/20 14:11> Status: Acute <Abril MaresZuleyma RgESTEFANIABuzzCosta - Last Filed: 10/15/20 14:11> Assessment and Plan: Possibly secondary to infection PT OT started Exhibit tolerance during physical activity as evidenced by a normal fluctuation of vital signs during physical activity. ? Patient will discharge home with [facility] and PT OT <ESTEFNAIA De SouzaBuzzCosta - Last Filed: 10/15/20 14:11> (2) STEVEN (acute kidney injury): Code(s): N17.9 - Acute kidney failure, unspecified <Clydesyl SuzanESTEFANIA HarmonBuzzCosta - Last Filed: 10/15/20 14:11> Status: Acute <Clydesyl MaresESTEFANIA HarmonBuzzCosta - Last Filed: 10/15/20 14:11> Assessment and Plan: Creatinine on admission2.50>2.34 >2.05baseline appears to be at 1.70 improving Possibly secondary to infection versus increased use of Lasix Lasix doubled on 10/09 Will continue to monitor Renal dose medication <Clydesyl SuzanESTEFANIA HarmonBuzz - Last Filed: 10/15/20 14:11> (3) Cellulitis and abscess of left lower extremity: Code(s): L03.116 - Cellulitis of left lower limb; L02.416 - Cutaneous abscess of left lower limb <Clydesyl SuzanESTEFANIA HarmonBuzz - Last Filed: 10/15/20 14:11> Status: Acute <ESTEFANIA De SouzaBuzzCosta - Last Filed: 10/15/20 14:11> Assessment and Plan: Continue clindamycin day 3 CRP elevated at 5.6 BNP 745 Once renal function improves will possibly consider Lasix Patient presented to his primary care physician's office on 09/23/2020 for venous ulcers on his left lower extremity discharge per wound care. 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 - Wagoner's palsy <GUNNER De Souza - Last Filed: 10/15/20 14:11> Status: Acute <GUNNER De Souza - Last Filed: 10/15/20 14:11> Assessment and Plan: Continue gabapentin at 100 mg 3 times daily Will continue to monitor On 09/23 patient was treated for Wagoner's palsy with valacyclovir 1000 mg 3 times daily x7 days, prednisone 60 mg daily x7 days artificial tears, and taping of eye <GUNNER De Souza - Last Filed: 10/15/20 14:11> (5) Hypertension: Code(s): I10 - Essential (primary) hypertension <GUNNER De Souza - Last Filed: 10/15/20 14:11> Status: Chronic <GUNNER De Souza - Last Filed: 10/15/20 14:11> Assessment and Plan: Stable Echo indicated severe pulmonary hypertension No home medication <GUNNER De Souza - Last Filed: 10/15/20 14:11> (6) History of cerebrovascular accident: Code(s): Z86.73 - Personal history of transient ischemic attack (TIA), and cerebral infarction without residual deficits <GUNNER De Souza - Last Filed: 10/15/20 14:11> Status: Resolved <GUNNER De Souza - Last Filed: 10/15/20 14:11> Assessment and Plan: Right-sided facial drooping PT OT <GUNNER De Souza - Last Filed: 10/15/20 14:11> (7) ARLINE (obstructive sleep apnea): Code(s): G47.33 - Obstructive sleep apnea (adult) (pediatric) <GUNNER De Souza - Last Filed: 10/15/20 14:11> Status: Chronic <GUNNER De Souza - Last Filed: 10/15/20 14:11> Assessment and Plan: Patient family will bring CPAP from home <GUNNER De Souza - Last Filed: 10/15/20 14:11> (8) Swelling of lower extremity: Code(s):
--- NOTE | 2020-10-15 11:25 | PC.NURSE ---
Instructed on need for U/A to be collected
--- NOTE | 2020-10-15 11:55 | PC.NURSE ---
Urine collected and taken to lab
[2020-10-15 12:00] VITALS: PULSE 88
[2020-10-15 12:09] LABS: Add Urine Microscopic? YES; Appearance Urine Clear (Clear); Bilirubin Urine Negative (Negative); Blood Urine 3+ (Negative); Color Urine Light Yellow (Yellow); Glucose Urine UA Negative (Negative); Ketones Urine Negative (Negative); Leukocyte Esterase Ur Negative LEU/UL (Negative); Nitrate Urine Negative (Negative); Protein Urine Trace (Negative); Specific Grav Ur 1.015 (1.010-1.020); Urobilinogen Urine 0.2 mg/dL (0.2-1.0)
[2020-10-15 12:15] LABS: Bacteria Urine Trace /hpf; RBC Urine 21-50 /hpf (0-2); WBC Urine None seen /hpf (0-3)
--- NOTE | 2020-10-15 13:31 | PC.NURSE ---
telemetry discontinued, on room air at this time 92-93%, assited to dress, saline lock removed,
--- NOTE | 2020-10-15 14:01 | PC.NURSE ---
daughter here, dc instructions reviewed with patient and daughter, dr presley at the bedside to review echo results
--- NOTE | 2020-10-15 14:15 | PC.NURSE ---
Discharged to home via wheel chair, personal items including wallet from safe returned to patient, discharged with adamaris
== END 2020-10-15 14:15 | disposition home health service (06) | DRG 603 ==
LOC: CHSED 16:42 → CHS2ND 20:17
PROVIDERS: Nurse Practitioner; Admitting Provider Emergency Medicine; Emergency Provider Emergency Medicine; PCP Family Medicine; Visit Provider Emergency Medicine
DX: R53.1 Weakness (principal); I12.9 Hypertensive chronic kidney disease with stage 1 through stage 4 chronic kidney disease, or unspecified chronic kidney disease; R29.810 Facial weakness; L03.116 Cellulitis of left lower limb; N18.9 Chronic kidney disease, unspecified; N17.9 Acute kidney failure, unspecified; G47.33 Obstructive sleep apnea (adult) (pediatric); Z96.641 Presence of right artificial hip joint; Z86.73 Personal history of transient ischemic attack (TIA), and cerebral infarction without residual deficits; L02.416 Cutaneous abscess of left lower limb; I48.91 Unspecified atrial fibrillation; I08.0 Rheumatic disorders of both mitral and aortic valves; I27.20 Pulmonary hypertension, unspecified; G51.0 Bell's palsy; N40.0 Benign prostatic hyperplasia without lower urinary tract symptoms; Z20.822 Contact with and (suspected) exposure to COVID-19
CPT/HCPCS: 36415; 51701; 70450; 71046; 80053; 81001; 83605; 83880; 84443; 84484; 85025; 85027; 85610; 85730; 86140; 87040; 87426; 93005; 93306; 97161; 97165; 97530; 99285; A9270; C9803; J1644; J7030; J7512

== ENCOUNTER 2020-10-21 12:34 | Outpatient (NON) | payer MEDICARE, SELFPAY ==
[2020-10-21 12:55] LABS: Hematocrit 34.8 % (37.0-46.0); Mean Corpuscular HGB Conc 31.6 g/dL (32.0-36.0); Mean Corpuscular Hemoglobin 30.2 pg (27.0-31.0); Mean Corpuscular Volume 95.6 fL (78.0-102.0); Mean Platelet Volume 9.6 fl (8.7-11.0); Platelet Count Result 268 K/mm3 (150-420); Red Blood Count 3.64 M/mm3 (4.70-6.10); Red Cell Distribution Width 16.4 % (11.6-14.4); White Blood Count 11.6 K/mm3 (4.8-10.8)
[2020-10-21 13:21] LABS: Alanine Aminotransferase 6 U/L (16-63); Albumin Level 2.8 g/dL (3.4-5.0); Alkaline Phosphatase 118 U/L (46-116); Anion Gap 11 mmol/L (8-16); Aspartate Amino Transferase 23 U/L (15-37); Bilirubin,Total 0.6 mg/dL (0.00-1.00); Blood Urea Nitrogen 29 mg/dL (7-18); Calcium 8.9 mg/dL (8.5-10.1); Carbon Dioxide 27 mmol/L (21-32); Chloride 106 mmol/L (98-108); Estimated Glomerular Filt Rate 34; Glucose 89 mg/dL (70-99); Osmolality Calculated 302 mOsm/kg (285-295); Potassium 4.5 mmol/L (3.5-5.1); Sodium 144 mmol/L (136-145); Total Protein 6.6 g/dL (6.4-8.2)
== END 2020-10-21 12:35 | disposition home or self-care (01) ==
LOC: CHSLAB 12:36
PROVIDERS: Visit Provider Family Medicine
DX: N17.9 Acute kidney failure, unspecified (principal); L03.116 Cellulitis of left lower limb
CPT/HCPCS: 36415; 80053; 85027

== ENCOUNTER 2020-10-30 12:59 | Outpatient (CLI) | payer MEDICARE, SELFPAY ==
--- NOTE | 2020-10-30 13:05 | ECHO_ITS ---
Patient Info Name: Romie Yo Age: 85 years : 1935 Gender: Male Ht: 66 in Wt: 170 lbs BSA: 1.91 m2 HR: 92 bpm BP: 99 / 50 mmHg Technical Quality: Fair Exam Date: 10/30/2020 12:59 PM Exam Location: [facility] Patient Status: Outpatient Admit Date: 10/30/2020 Staff Ordering Physician: Ok Allen DO Oncology Nurse: Emiliano Leger RDCS, RT Attending Provider: Ok Allen DO Referring Physician: Tiffany STEPHENS; Exam Type: CA echo doppler color flow Study Info Indications R60.0 - Localized edema Complete two-dimensional, color flow and Doppler transthoracic echocardiogram is performed. Strain analysis performed. History/Risk Factors Hypertension: Yes Dyslipidemia: No Peripheral Arterial Disease (PAD): No Myocardial Infarction (WA): No Chronic Lung Disease: No Obesity: No Renal Disease: No Congestive Heart Failure (CHF): Hx CHF Cardiomyopathy/LV Systolic Dysfunction: No Diabetes Mellitus: No COPD: No Tobacco Use: Former Deep Vein Thrombosis (DVT): None Dialysis: None Frailty Scale (CSHA): 6: Moderately Frail Cardiac Arrest: No Prior Interventions Pacemaker: No PCI: No CABG: No Valve Surgery: No ICD: No PV Intervention: None Heart Transplant: No Summary 1. Complete two-dimensional, color flow and Doppler transthoracic echocardiogram is performed. 2. Left ventricular chamber dimension is normal. 3. Left ventricular systolic function is hyperdynamic, estimated at >70%. 4. There is moderately increased left ventricular wall thickness. 5. The left ventricular diastolic function is normal. 6. E/e' 7 is not elevated. 7. Left atrial chamber dimension is moderately enlarged. 8. Right atrial chamber dimension is moderately enlarged. 9. There is severe aortic valve sclerosis. 10. There is moderate to severe aortic valve stenosis with a peak velocity of 289 cm/s, mean gradient of 12 mmHg, and aortic valve area of 1.0 cm2. 11. The mitral valve has mildly calcified annulus. 12. There is mild mitral valve regurgitation. 13. There is mild to moderate tricuspid valve regurgitation. 14. Moderate pulmonary hypertension, estimated pulmonary arterial systolic pressure is 53 mmHg. 15. Dilated inferior vena cava with >50% collapse upon inspiration consistent with elevated right atrial pressure, 10 mmHg. Left Ventricle E/e' 7 is not elevated. Left ventricular chamber dimension is normal. Left ventricular systolic function is hyperdynamic, estimated at >70%. There is moderately increased left ventricular wall thickness. The left ventricular diastolic function is normal. Right Ventricle Right ventricular systolic function is normal based on normal TAPSE 2.0 cm. Right ventricular chamber dimension is not well visualized. Left Atria Left atrial chamber dimension is moderately enlarged. Right Atria Right atrial chamber dimension is moderately enlarged. Aortic Valve The aortic valve is not well visualized. Cannot determine number of aortic valve leaflets. There is severe aortic valve sclerosis. There is moderate to severe aortic valve stenosis with a peak velocity of 289 cm/s, mean gradient of 12 mmHg, and aortic valve area of 1.0 cm2. There is no aortic valve regurgitation. Pulmonic Valve There is no pulmonic regurgitation. Mitral Valve The mitral valve has mildly calcified annulus. There is no mitral valve stenosis. There is mild
== END 2020-10-30 13:00 | disposition home or self-care (01) ==
LOC: CHSIMG 13:01
PROVIDERS: PCP Family Medicine; Visit Provider Family Medicine
DX: R60.9 Edema, unspecified (principal); I10 Essential (primary) hypertension
CPT/HCPCS: 93306

== ENCOUNTER 2020-11-30 16:48 | Inpatient (IN) | payer MEDICARE, SELFPAY ==
[2020-11-30] VITALS (8 sets, daily range): BP systolic 102–114; BP diastolic 55–69; PULSE 100–114; RESP 16–22; TEMP 36.2–36.7; O2SAT 92–100; BMI 27.0
--- NOTE | ~2020-11-30 | XR_ITS ---
XR chest 1V portable 11/30/2020 17:52 Indication: Generalized weakness Procedure: AP portable chest Comparison: Comparison to multiple prior studies sequentially, with oldest reviewed study dated 03/2010. Findings: Patchy bilateral airspace disease, compatible with pneumonia. Small right pleural effusion. There is atherosclerosis of the aorta. Impression: 1: Patchy bilateral airspace disease, compatible with pneumonia. Reviewed, dictated and finalized at location A. Impression: 1: Patchy bilateral airspace disease, compatible with pneumonia.
--- NOTE | ~2020-11-30 | CT_ITS ---
EXAMINATION: CT brain wo con DATE: 11/30/2020 17:53 INDICATION: Generalized weakness TECHNIQUE: Computed tomography (CT) of the head was performed without intravenous contrast. The dose- length product was 756.67 mGy-cm. Automated exposure control and iterative reconstruction technique w ere employed. COMPARISON: CT dated 10/13/2020 FINDINGS: Generalized atrophy. There are scattered mild moderate periventricular and subcortical whit e matter changes, most likely related to small vessel ischemic disease (microangiopathy). There are c hronic bilateral lacunar infarctions. No midline shift. There is a partially visualized low density m ass with nodular margins in the right neck, suspicious for necrotic malignancy. This measures approxi mately 5.7 x 5.1 cm greatest axial dimension. IMPRESSION: 1. Partially visualized low density mass with nodular margins in the right neck, suspicious for necro tic malignancy. 2: Chronic bilateral lacunar infarctions. 3: Chronic age-related findings. Reviewed, dictated and finalized at location A. IMPRESSION: 1. Partially visualized low density mass with nodular margins in the right neck , suspicious for necrotic malignancy. 2: Chronic bilateral lacunar infarctions. 3: Chronic age-related findings.
--- NOTE | ~2020-11-30 | NM_ITS ---
EXAMINATION: NM pulmonary perfusion DATE: 12/02/2020 11:43 INDICATION: Hypoxia. On BiPAP. TECHNIQUE: 5.4 mCi Tc-99m MAA by intravenous route. Scintigraphic images of the chest were obtained. COMPARISON: Chest radiograph dated 12/02/2020 FINDINGS: The left lung is decreased in size with diffusely decreased signal likely representing partial collap se and attenuation of pulmonary activity resulting from a large right pleural effusion which opacifie s the majority of the right hemithorax on the plain radiographs. Large perfusion defects involving th e majority of the superior segment of the left lower lobe and the inferior segment of the lingula. Mo derate-sized perfusion defect at the left apical segment of the left upper lobe and posterior basilar segment of the left lower lobe. Several additional small perfusion defects throughout the remainder of the left lung. There is airspace opacity in the mid left lung which could involve the superior seg ment of the left lower lobe but which is smaller than the perfusion defect. IMPRESSION: 1. High probability for pulmonary embolism based solely upon perfusion defects in the left lung. 2. Assessment of the right lung limited by attenuation of the partially collapsed left lung resulting from a large right pleural effusion. Reviewed, dictated and finalized at location A. IMPRESSION: 1. High probability for pulmonary embolism based solely upon perfusion defects in the left lung. 2. Assessment of the right lung limited by attenuation of the partially collaps ed left lung resulting from a large right pleural effusion.
--- NOTE | ~2020-11-30 | XR_ITS ---
XR chest 1V 12/02/2020 11:36 Indication: Hypoxia. Procedure: AP view of the chest Comparison: Comparison to multiple prior studies sequentially, with oldest reviewed study dated 10/07. Findings: Large right pleural effusion with underlying compressive atelectasis. There is mediastinal shift to the right, consistent with volume loss. Left perihilar airspace disease. No left effusion or pneumothorax. No acute osseous abnormality. Impression: 1: Large right pleural effusion with collapse of the right lung. Mediastinal shift to the right. 2: Left perihilar airspace disease which may represent pneumonia and/or atelectasis. Reviewed, dictated and finalized at location A. Impression: 1: Large right pleural effusion with collapse of the right lung. Mediastinal sh ift to the right. 2: Left perihilar airspace disease which may represent pneumonia and/or atelec tasis.
--- NOTE | 2020-11-30 17:10 | ECG_ITS ---
Measurements Intervals [place] Rate: 101 P: GA: 0 QRS: -25 QRSD: 100 T: 32 QT: 343 QTc: 446 Interpretive Statements ATRIAL FIBRILLATION WITH RAPID VENTRICULAR RESPONSE INCOMPLETE RIGHT BUNDLE BRANCH BLOCK DELAYED PRECORDIAL R/S TRANSITION BASELINE ARTIFACT- V2-V3 ABNORMAL ECG Electronically Signed On 12-01-2020 7:56:18 CDT by Luis Daniel Mcmahon D.O.
--- NOTE | 2020-11-30 17:15 | PC.NURSE ---
Pt has right sided facial droop, this is not new and family states he was diagnosed with bells palsy some time ago and it has not yet resolved.
--- NOTE | 2020-11-30 17:30 | ED.WEAKNESS ---
HPI - Weakness General Chief complaint: Weakness Stated complaint: ambulance Time Seen by Provider: 11/30/20 16:55 Source: patient, EMS and RN notes reviewed Mode of arrival: EMS Limitations: no limitations History of Present Illness MD Complaint: generalized weakness and difficulty walking Onset (ago): day(s) (1) Duration: constant Location: generalized Severity: moderate Quality: tingling and numbness Relieving factors: none Exacerbating factors: none Related Data Home Medications Medication Instructions Recorded Confirmed multivitamin 1 tablet PO DAILY 10/09/19 10/13/20 turmeric root extract 500 mg 500 mg PO BID 10/09/19 10/13/20 capsule Allergies Allergy/AdvReac Type Severity Reaction Status Date / Time No Known Allergies Allergy Verified 10/20/20 07:44 Review of Systems Review of Systems: All systems reviewed & are unremarkable except as noted in HPI and below Constitutional: Constitutional: Reports weakness Musculoskeletal: Comments: increased lower limb edema. Neurologic: Reports weakness PMFSH Past Medical History Medical History History of cerebrovascular accident Hypertension ARLINE (obstructive sleep apnea) Surgical History Surgical History History of right hip replacement Social History Social History Smoking status: Former smoker Alcohol intake: former Substance use: never Substance use type: does not use Additional living arrangements comments: . Lives in [place] throught the winter. Gender identity (if verbalized by the patient): Male Sexual Orientation (if Verbalized by the Patient): Straight or Heterosexual Spiritual care concerns: No Exam Const: General: no acute distress and alert Nutritional Appearance: well nourished HENMT: Head: normal to inspection Ears: external ears normal and TM's normal bilaterally General nose exam: Normal external nose present and Normal nares present Face and sinus: normal facial exam (chronic right facial droop.) Mouth: Yes moist mucous membranes Eyes: Conjunctivae: conjunctivae normal Pupils: Equal, round and reactive pupils present EOM: EOMs intact bilaterally Neck: Neck: normal visual inspection and no lymphadenopathy Chest: Chest palpation & inspection: normal inspection of the chest Resp: Effort & Inspection: normal respiratory effort Auscultation: crackles Cardio: Rate: tachycardic GI: GI Palp: Yes Soft to palpation Percussion: Yes normal to percussion Auscultation: normal bowel sounds : General: Yes bladder normal to palpation and Yes no CVA tenderness Male General Exam: Yes normal external exam Testes: Testes normal Back/Spine/Pelvis: Back: no CVA tenderness Skin: General skin exam: normal color Rashes: no rashes Neuro: General: patient oriented x3, moves all extremities, no meningeal signs, no focal motor deficits and CN's II-XI intact bilaterally Extrem: General: edema Psych: Appearance: disheveled Attitude: cooperative Thought content: Yes Normal thought content present Course Course Emergency Course: Pt was ill in the ED. for admission and Tx. Reevaluation(s) Reevaluation #1: Pt had no acute sxs in the ED. Gait was not seen. Date: 11/30/20 Time: 17:55 Vital Signs Vital signs: Vital Signs Pulse Rate 100 11/30/20 16:58 Temperature 36.2 C L 11/30/20 17:00 Pulse Rate 101 H 11/30/20 17:00 Respiratory Rate 20 11/30/20 17:00 Blood Pressure 107/66 11/30/20 17:00 Pulse Oximetry 100 11/30/20 17:00 MDM - Weakness Differential Diagnosis Differential diagnosis: Likely anemia, sepsis and dehydration Medical Records Attestation: I reviewed the patient's medical records. Lab Data Result diagrams: 11/30/20 17:33 11/30/20 17:33 Labs: Lab Results 11/30/20
[2020-11-30 17:37] LABS: Basophils Absolute Auto 0.04 K/mm3 (0.00-0.10); Basophils Percent Auto 0.2 % (0.0-1.0); Eosinophils Absolute Auto 0.21 K/mm3 (0.02-0.50); Eosinophils Percent Auto 1.2 % (1.0-6.0); Hematocrit 25.8 % (37.0-46.0); Hemoglobin 8.1 g/dL (12.4-15.3); Immature Granulocyte Absolute 0.12 K/mm3 (0.00-0.00); Immature Granulocyte Percent A 0.7 % (0.0-0.0); Lymphocytes Absolute Auto 2.19 K/mm3 (1.10-4.50); Lymphocytes Percent Auto 12.7 % (18.0-42.0); Mean Corpuscular HGB Conc 31.4 g/dL (32.0-36.0); Mean Corpuscular Hemoglobin 30.6 pg (27.0-31.0); Mean Corpuscular Volume 97.4 fL (78.0-102.0); Mean Platelet Volume 9.4 fl (8.7-11.0); Monocytes Absolute Auto 0.83 K/mm3 (0.10-0.90); Monocytes Percent Auto 4.8 % (2.0-11.0); Neutrophils Absolute Auto 13.9 K/mm3 (1.7-7.2); Neutrophils Percent Auto 80.4 % (50.0-70.0); Platelet Count Result 250 K/mm3 (150-420); Red Blood Count 2.65 M/mm3 (4.70-6.10); Red Cell Distribution Width 16.3 % (11.6-14.4); White Blood Count 17.3 K/mm3 (4.8-10.8)
[2020-11-30 17:56] LABS: Alanine Aminotransferase 71 U/L (16-63); Albumin Level 2.7 g/dL (3.4-5.0); Alkaline Phosphatase 129 U/L (46-116); Anion Gap 4 mmol/L (8-16); Aspartate Amino Transferase 35 U/L (15-37); Bilirubin,Total 0.7 mg/dL (0.00-1.00); Blood Urea Nitrogen 52 mg/dL (7-18); Calcium 9.5 mg/dL (8.5-10.1); Carbon Dioxide 35 mmol/L (21-32); Chloride 106 mmol/L (98-108); Estimated Glomerular Filt Rate 30; Glucose 98 mg/dL (70-99); Osmolality Calculated 314 mOsm/kg (285-295); Potassium 5.1 mmol/L (3.5-5.1); Sodium 145 mmol/L (136-145); Total Protein 7.2 g/dL (6.4-8.2); Troponin I 43.6 ng/L (0.00-60.4)
[2020-11-30 17:58] LABS: Lactic Acid Reflex 1.2 mmol/L (0.4-2.0)
[2020-11-30 17:59] LABS: Estimated CRCL calculation 22 ml/min
[2020-11-30] MEDS: SODIUM CHLORIDE 0.9% IV 500 ML 999 ML IV CONT (18:38)
[2020-11-30] MEDS: FUROSEMIDE INJ 100 MG/10 ML VIAL 80 MG IV PUSH (18:38)
[2020-11-30] MEDS: AZITHROMYCIN 250 MG TABLET 500 MG PO (19:17)
--- NOTE | 2020-11-30 19:27 | PC.NURSE ---
Pt was able to swallow oral medications as prescribed, but had some difficulty. family stated pt hasn't been able to swallow very well. edp aware.
[2020-11-30 23:05] LABS: SARS-CoV-2 Ag Negative (Negative)
[2020-12-01] VITALS (17 sets, daily range): BP systolic 112–129; BP diastolic 60–83; PULSE 96–132; RESP 20–34; TEMP 36.4–37.1; O2SAT 80–100
[2020-12-01 00:08] LABS: Glucose Point of Care 128 mg/dl (65-105)
[2020-12-01 00:10] LABS: Appearance Urine Clear (Clear); Bilirubin Urine Negative (Negative); Color Urine Light Yellow (Yellow); Glucose Urine UA Negative (Negative); Ketones Urine Negative (Negative); Leukocyte Esterase Ur Trace (Negative); Nitrate Urine Negative (Negative); Protein Urine Negative (Negative); Urobilinogen Urine 0.2 mg/dL (0.2-1.0)
[2020-12-01 00:24] LABS: Add Urine Microscopic? YES; Blood Urine Trace-Intact (Negative); RBC Urine 0-2 /hpf (0-2)
[2020-12-01 00:25] LABS: WBC Urine 0-3 /hpf (0-3)
[2020-12-01 05:42] LABS: Basophils Absolute Auto 0.03 K/mm3 (0.00-0.10); Basophils Percent Auto 0.2 % (0.0-1.0); Eosinophils Absolute Auto 0.07 K/mm3 (0.02-0.50); Eosinophils Percent Auto 0.5 % (1.0-6.0); Hematocrit 27.2 % (37.0-46.0); Hemoglobin 8.4 g/dL (12.4-15.3); Immature Granulocyte Absolute 0.16 K/mm3 (0.00-0.00); Immature Granulocyte Percent A 1.1 % (0.0-0.0); Lymphocytes Absolute Auto 1.55 K/mm3 (1.10-4.50); Mean Corpuscular HGB Conc 30.9 g/dL (32.0-36.0); Mean Corpuscular Hemoglobin 29.9 pg (27.0-31.0); Mean Corpuscular Volume 96.8 fL (78.0-102.0); Mean Platelet Volume 10.3 fl (8.7-11.0); Monocytes Absolute Auto 0.58 K/mm3 (0.10-0.90); Monocytes Percent Auto 4.1 % (2.0-11.0); Neutrophils Absolute Auto 11.6 K/mm3 (1.7-7.2); Neutrophils Percent Auto 83.1 % (50.0-70.0); Platelet Count Result 256 K/mm3 (150-420); Red Blood Count 2.81 M/mm3 (4.70-6.10); Red Cell Distribution Width 16.3 % (11.6-14.4)
[2020-12-01 05:58] LABS: Alanine Aminotransferase 66 U/L (16-63); Albumin Level 2.7 g/dL (3.4-5.0); Alkaline Phosphatase 131 U/L (46-116); Anion Gap 3 mmol/L (8-16); Aspartate Amino Transferase 29 U/L (15-37); Bilirubin,Total 0.7 mg/dL (0.00-1.00); Blood Urea Nitrogen 52 mg/dL (7-18); Calcium 9.5 mg/dL (8.5-10.1); Carbon Dioxide 36 mmol/L (21-32); Chloride 107 mmol/L (98-108); Estimated CRCL calculation 21 ml/min; Estimated Glomerular Filt Rate 27; Glucose 120 mg/dL (70-99); Osmolality Calculated 317 mOsm/kg (285-295); Potassium 4.9 mmol/L (3.5-5.1); Sodium 146 mmol/L (136-145); Total Protein 7.4 g/dL (6.4-8.2)
--- NOTE | 2020-12-01 07:58 | ECG_ITS ---
Measurements Intervals [place] Rate: 123 P: [place]: 0 QRS: -20 QRSD: 94 T: 79 QT: 293 QTc: 420 Interpretive Statements ATRIAL FIBRILLATION WITH RAPID VENTRICULAR RESPONSE LOW QRS VOLTAGE IN LIMB LEADS BASELINE ARTIFACT- I, III, AVL, V6 ABNORMAL ECG Electronically Signed On 12-01-2020 8:27:09 CDT by Luis Daniel Mcmahon D.O.
[2020-12-01 08:19] LABS: Glucose Point of Care 133 mg/dl (65-105)
[2020-12-01 08:38] LABS: Base Excess ABG 10.9 mmol/L (0-2); Device NASAL CANNULA; HCO3 ABG 36.5 mmol/L (23-29); Modified Allen's Test Pass; Oxygen Content ABG 11.9 %vol (16.0-22.0); Oxygen Saturation ABG 92.3 % (95-97); Oxyhemoglobin 91.3 % (94-100); PCO2 ABG 54.9 mmHg (35-45); PO2 ABG 63.3 mmHg (75-85); Site Drawn LEFT RADIAL; Total Hemoglobin 9.2 g/dL (12.0-18.0); pH ABG 7.44 (7.35-7.45)
[2020-12-01] MEDS: dilTIAZem HCl INJ 25 MG/5 ML VIAL 10 MG IV PUSH (09:44)
[2020-12-01] MEDS: PANTOPRAZOLE SODIUM IV 40 MG VIAL IV PUSH (09:44)
--- NOTE | 2020-12-01 10:15 | PC.NURSE ---
present to assist with the operation and on Home Cpap machine. Spouse removed ring on patients finger and took ring home for safe keeping.
--- NOTE | 2020-12-01 11:25 | PM.IMHP ---
H&P: HPI History of Present Illness Date/Time: 12/01/20 11:25 this is a 85-year-old male who presented to urgent care with complaints of weakness. Patient has a past medical history of CVA hypertension, lower extremity edema, Wagoner's palsy and sleep apnea. Patient is a poor historian. Received report from his that over the last few days his weakness has increased and he is unable to. Blood pressure 113/60, 115, 20, 98.8, 98% on 2 L nasal cannula. Received report from nursing staff that patient sats dropped in the lower 90s over 80s. Patient placed on nonrebreather, will put patient on CPAP once his comes in and connects the CPAP machine. Patient heart rates also was high as 120s EKG completed indicated A. fib with RVR. Contacted Dr. 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 Patient is on a patient monitor, the patient monitor was not charged. We will replace the monitor once the device is recharged. Dr. Mcmahon informed of patient admission and his EKG reading. Dr. Mcmahon notes that there has not been any notifications that the patient was in A. fib and requested we send the EKG to his office. We will continue his at-home treatment plan insert a further notice. Patient's WBC is 14.0, hemoglobin 8.4, hematocrit 27.2, sodium 146, potassium 4.9, BUN 52, creatinine 2.29, glucose 120, AST 29 ALT 66, chest x-ray chest x-ray indicate pneumonia, head CT indicatesPartially visualized low density mass with nodular margins in the right neck, leukocytes indicate blood and a trace of leukocyte Estrace. Patient being admitted for urinary tract infection and pneumonia Inpatient Time spent 60 minutes Chief Complaint: Weakness Review of Systems Review of Systems: ROS unobtainable: Yes unobtainable due to mental status [facility] Past Medical History Medical History (Updated 12/01/20 @ 12:03 by GUNNER De Souza) History of cerebrovascular accident Hypertension ARLINE (obstructive sleep apnea) Surgical History Surgical History History of right hip replacement Family History Family History (Updated 12/01/20 @ 11:58 by GUNNER De Souza) Other Family history non-contributory Social History Social History Smoking status: Unknown if ever smoked Alcohol intake: unknown Substance use: unknown Substance use type: unknown Additional living arrangements comments: . Lives in [place] throught the winter. Gender identity (if verbalized by the patient): Male Sexual Orientation (if Verbalized by the Patient): Straight or Heterosexual Spiritual care concerns: No Meds Home Medications and Allergies Home Medications Medication Instructions Recorded Confirmed Type multivitamin 1 tablet PO DAILY 10/09/19 11/30/20 History turmeric root extract 500 mg 500 mg PO BID 10/09/19 11/30/20 History capsule clopidogrel 75 mg tablet See Rx Instructions .ROUTE 10/10/20 11/30/20 Rx .COMPLEX #90 tablet finasteride 5 mg tablet 5 mg PO DAILY #90 tablet 10/10/20 11/30/20 Rx losartan 25 mg tablet See Rx Instructions .ROUTE 10/10/20 11/30/20 Rx .COMPLEX #90 tablet tamsulosin 0.4 mg capsule See Rx Instructions .ROUTE 10/10/20 11/30/20 Rx .COMPLEX #90 cap furosemide [Lasix] 20 mg PO QAM #90 tablet 10/15/20 11/30/20 Rx gabapentin 100 mg capsule 100 mg PO TID 90 Days #270 cap 11/17/20 11/30/20 Rx Allergies Allergy/AdvReac Type Severity Reaction Status Date / Time No Known Allergies Allergy Verified 10/20/20 07:44 Vital Signs Vital Signs - 24 hr 11/30/20 16:58 11/30/20 17:00 11/30/20 18:30 Temperature 97.1 F L Pulse Rate 100 101 H Respiratory Rate 20 Blood Pressure 107/66 Pulse Oximetry 100 98 11/30/20 18:32 11/30/20 18:33 11/30/20 19:18 Temperature Pulse Rate 107 H Respiratory Rate 22 H Blood Pressure 110/55 L 111/62 Pulse Oximetry 92 93 11/30/20 19:56 11/30/20 23:31
[2020-12-01 12:27] LABS: Lactic Acid Reflex 1.1 mmol/L (0.4-2.0)
[2020-12-01] MEDS: IPRATROPIUM 0.5 MG/ALBUTEROL SULFATE 2.5 MG AMPUL.NEB 3 ML INHALATION ×3 (13:15→22:36)
[2020-12-01] MEDS: GABAPENTIN 100 MG CAPSULE PO (14:40)
[2020-12-01] MEDS: FUROSEMIDE INJ 40 MG/4 ML VIAL IV PUSH (16:44)
[2020-12-01 17:04] LABS: NT Pro B Type Natriuretic Pept 3787 pg/mL (0-450)
--- NOTE | 2020-12-01 17:06 | PCOTNOTE ---
Per MACHINE SET UP OPERATOR P[employer]ER GOODS, hold OT evaluation at this time secondary to patient's status. Will attempt tomorrow. MS
[2020-12-01 18:36] LABS: Glucose Point of Care 218 mg/dl (65-105)
[2020-12-02] VITALS (11 sets, daily range): BP systolic 110–124; BP diastolic 75–84; PULSE 92–138; RESP 20–36; TEMP 37–37.7; O2SAT 97–99
[2020-12-02 00:14] LABS: Glucose Point of Care 150 mg/dl (65-105)
[2020-12-02 05:19] LABS: Hematocrit 26.2 % (37.0-46.0); Mean Corpuscular HGB Conc 30.5 g/dL (32.0-36.0); Mean Corpuscular Volume 98.1 fL (78.0-102.0); Mean Platelet Volume 10.4 fl (8.7-11.0); Platelet Count Result 265 K/mm3 (150-420); Red Blood Count 2.67 M/mm3 (4.70-6.10); Red Cell Distribution Width 16.1 % (11.6-14.4)
[2020-12-02] MEDS: IPRATROPIUM 0.5 MG/ALBUTEROL SULFATE 2.5 MG AMPUL.NEB 3 ML INHALATION ×2 (05:35→12:34)
[2020-12-02 05:37] LABS: Alanine Aminotransferase 48 U/L (16-63); Albumin Level 2.4 g/dL (3.4-5.0); Alkaline Phosphatase 111 U/L (46-116); Anion Gap 6 mmol/L (8-16); Aspartate Amino Transferase 20 U/L (15-37); Bilirubin,Total 0.4 mg/dL (0.00-1.00); Blood Urea Nitrogen 61 mg/dL (7-18); CRP 7.6 mg/dL (0.0-0.9); Calcium 8.9 mg/dL (8.5-10.1); Carbon Dioxide 35 mmol/L (21-32); Chloride 106 mmol/L (98-108); Estimated CRCL calculation 19 ml/min; Estimated Glomerular Filt Rate 24; Glucose 117 mg/dL (70-99); Magnesium 2.3 mg/dL (1.8-2.4); NT Pro B Type Natriuretic Pept 6296 pg/mL (0-450); Osmolality Calculated 322 mOsm/kg (285-295); Sodium 147 mmol/L (136-145); Total Protein 6.8 g/dL (6.4-8.2)
[2020-12-02 06:06] LABS: Glucose Point of Care 129 mg/dl (65-105)
--- NOTE | 2020-12-02 07:22 | P.PN_ITS ---
Progress Note: A&P Assessment and Plan (1) Weakness generalized: Code(s): R53.1 - Weakness Status: Acute Assessment and Plan: * Possibly secondary to infection * PT OT and speech therapy consulted (2) Pneumonia: Qualifiers: Laterality: bilateral Lung location: unspecified part of lung Pneumonia type: due to unspecified organism Qualified Code(s): J18.9 - Pneumonia, unspecified organism Code(s): J18.9 - Pneumonia, unspecified organism Status: Acute Assessment and Plan: * Chest x-ray indicates pneumonia * WBCs 14.0>16.0 * Blood culture pending * Continue azithromycin and Rocephin * Continue nebulizers (3) Afib: Code(s): I48.91 - Unspecified atrial fibrillation Status: Acute Assessment and Plan: * EKG on admission indicates A. fib with RVR with a heart rate of 101, repeat indicates A. fib with RVR with a heart rate of 123 * Patient given carvedilol 10 mg 1 time * Spoke with patient's exhibit electrician Dr. Mcmahon. EKG faxed to his office. labor trainer in place * Continue Plavix * Will need to follow-up with Dr. Mcmahon * Continue telemetry * Started Cardizem 120 daily (4) Wagoner's palsy: Code(s): G51.0 - Wagoner's palsy Status: Acute Assessment and Plan: * On 09/23/2020 patient diagnosed with Wagoner's palsy * Will follow up with his primary care physician Dr. Allen * patient NPO, swallow eval today (5) Abnormal CT of brain: Code(s): R90.89 - Other abnormal findings on diagnostic imaging of central nervous system Status: Acute Assessment and Plan: * CT of the head indicates Partially visualized low density mass with nodular margins in the right neck, suspicious for necrotic malignancy. * MRI ordered for Tuesday (6) Chronic kidney disease: Code(s): N18.9 - Chronic kidney disease, unspecified Status: Acute Assessment and Plan: * Creatinine 2.29 patient appears to be at baseline his creatinine ranged from1.79-2.34 * Avoid nephrotoxic agent * Renal dose medication * Continue IV hydration (7) BPH (benign prostatic hyperplasia): Code(s): N40.0 - Benign prostatic hyperplasia without lower urinary tract symptoms Status: Acute Assessment and Plan: * Proscar and Flexeril on hold. Patient n.p.o. (8) Swelling of lower extremity: Code(s): M79.89 - Other specified soft tissue disorders Status: Acute Assessment and Plan: * Chronic * Continue Lasix * Acute echo on 10/30 indicates : - Left atrial chamber dimension is moderately enlarged. - Right atrial chamber dimension is moderately enlarged. -There is severe aortic valve sclerosis. -There is moderate to severe aortic valve stenosis with a peak velocity of 289 cm/s, mean gradient of 12 mmHg, and aortic valve area of 1.0 cm2. -The mitral valve has mildly calcified annulus. -There is mild mitral valve regurgitation. -There is mild to moderate tricuspid valve regurgitation. -Moderate pulmonary hypertension, estimated pulmonary arterial systolic pressure is 53 mmHg. -Dilated inferior vena cava with >50% collapse upon inspiration consistent with elevated right atrial pressure, 10 mmHg. * Will need to follow-up with primary care physician (9) ARLINE (obstructive sleep apnea): Code(s): G47.33 - Obstructive sleep apnea (adult) (pediatric) Status: Chronic Assessment and Plan: * Continue CPAP (10) History of cerebrovascular accident: Code(s): Z86.73 - Personal history of
--- NOTE | 2020-12-02 07:22 | WPDPN ---
Progress Note: A&P Assessment and Plan (1) Weakness generalized: Code(s): R53.1 - Weakness Status: Acute Assessment and Plan: Possibly secondary to infection PT OT and speech therapy consulted (2) Pneumonia: Qualifiers: Laterality: bilateral Lung location: unspecified part of lung Pneumonia type: due to unspecified organism Qualified Code(s): J18.9 - Pneumonia, unspecified organism Code(s): J18.9 - Pneumonia, unspecified organism Status: Acute Assessment and Plan: Chest x-ray indicates pneumonia WBCs 14.0>16.0 Blood culture pending Continue azithromycin and Rocephin Continue nebulizers (3) Afib: Code(s): I48.91 - Unspecified atrial fibrillation Status: Acute Assessment and Plan: EKG on admission indicates A. fib with RVR with a heart rate of 101, repeat indicates A. fib with RVR with a heart rate of 123 Patient given carvedilol 10 mg 1 time Spoke with patient's taproom attendant Dr. Mcmahon. EKG faxed to his office. radiation monitor in place Continue Plavix Will need to follow-up with Dr. 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 Allen patient NPO, swallow eval today (5) Abnormal CT of brain: Code(s): R90.89 - Other abnormal findings on diagnostic imaging of central nervous system Status: Acute Assessment and Plan: CT of the head indicates Partially visualized low density mass with nodular margins in the right neck, suspicious for necrotic malignancy. MRI ordered for Tuesday (6) Chronic kidney disease: Code(s): N18.9 - Chronic kidney disease, unspecified Status: Acute Assessment and Plan: Creatinine 2.29 patient appears to be at baseline his creatinine ranged from1.79-2.34 Avoid nephrotoxic agent Renal dose medication Continue IV hydration (7) BPH (benign prostatic hyperplasia): Code(s): N40.0 - Benign prostatic hyperplasia without lower urinary tract symptoms Status: Acute Assessment and Plan: Proscar and Flexeril on hold. Patient n.p.o. (8) Swelling of lower extremity: Code(s): M79.89 - Other specified soft tissue disorders Status: Acute Assessment and Plan: Chronic Continue Lasix Acute echo on 10/30 indicates : - Left atrial chamber dimension is moderately enlarged. - Right atrial chamber dimension is moderately enlarged. -There is severe aortic valve sclerosis. -There is moderate to severe aortic valve stenosis with a peak velocity of 289 cm/s, mean gradient of 12 mmHg, and aortic valve area of 1.0 cm2. -The mitral valve has mildly calcified annulus. -There is mild mitral valve regurgitation. -There is mild to moderate tricuspid valve regurgitation. -Moderate pulmonary hypertension, estimated pulmonary arterial systolic pressure is 53 mmHg. -Dilated inferior vena cava with >50% collapse upon inspiration consistent with elevated right atrial pressure, 10 mmHg. Will need to follow-up with primary care physician (9) ARLINE (obstructive sleep apnea): Code(s): G47.33 - Obstructive sleep apnea (adult) (pediatric) Status: Chronic Assessment and Plan: Continue CPAP (10) History of cerebrovascular accident: Code(s): Z86.73 - Personal history of transient ischemic attack (TIA), and cerebral infarction without residual deficits Status: Resolved Assessment and Plan: PT OT schedule Swallow eval pending (11) Hypertension: Code(s): I10 - Essential (primary) hypertension Status: Chronic Assessment and Plan: Blood pressure 113/60 Patient n.p.o. medication to help Hydralazine IV with parameters in place Will adjust medication as needed (12) UTI (urinar
[2020-12-02] MEDS: PANTOPRAZOLE SODIUM IV 40 MG VIAL IV PUSH (08:14)
[2020-12-02] MEDS: methylPREDNISolone SOD SUCC 125 MG VIAL IV PUSH (08:14)
[2020-12-02] MEDS: FUROSEMIDE INJ 40 MG/4 ML VIAL IV PUSH ×2 (08:14→09:09)
[2020-12-02 08:25] LABS: Lactic Acid Reflex 1.1 mmol/L (0.4-2.0)
[2020-12-02] MEDS: ENOXAPARIN 30 MG/0.3 ML SYRINGE SUB-Q (09:09)
[2020-12-02 09:46] LABS: HCO3 ABG 34.4 mmol/L (23-29); Oxygen Content ABG 13.1 %vol (16.0-22.0); Oxygen Saturation ABG 97.9 % (95-97); Oxyhemoglobin 97.4 % (94-100); PCO2 ABG 51.9 mmHg (35-45); PO2 ABG 115.9 mmHg (75-85); Total Hemoglobin 9.4 g/dL (12.0-18.0); pH ABG 7.44 (7.35-7.45)
[2020-12-02 09:48] LABS: Device BIPAP; Modified Allen's Test Pass; Site Drawn RIGHT RADIAL
[2020-12-02 09:49] LABS: Inspiratory Pressure 12 cmH2O
[2020-12-02 09:50] LABS: Expiratory Pressure 6 cmH2O
--- NOTE | 2020-12-02 10:28 | PCOTNOTE ---
Per MILL [employer]ORER, patient is still on hold for therapy secondary to medical status. MS
--- NOTE | 2020-12-02 11:31 | PC.NURSE ---
1115 lucio cath inserted #16 under biomedical electronics technician. immediate return of 600ml of urine. diaper was saturated also.
[2020-12-02 12:16] LABS: Appearance Urine Clear (Clear); Bilirubin Urine Negative (Negative); Color Urine Light Yellow (Yellow); Glucose Urine UA Negative (Negative); Ketones Urine Negative (Negative); Leukocyte Esterase Ur Negative (Negative); Nitrate Urine Negative (Negative); Protein Urine Negative (Negative); Urobilinogen Urine 0.2 mg/dL (0.2-1.0)
[2020-12-02 12:27] LABS: Add Urine Microscopic? YES; Bacteria Urine None seen /hpf; Blood Urine Trace-Intact (Negative); Mucus Urine Few /lpf; RBC Urine 0-2 /hpf (0-2); Squamous Epithelial Cell Urine Rare /hpf (Few); WBC Urine None seen /hpf (0-3)
--- NOTE | 2020-12-02 13:11 | P.TS_ITS ---
Transfer Discharge Sum: Prov Provider Date of admission: 11/30/20 20:12 Primary care physician: Ok Allen DO Admitting clinician: Liyah Ruffin MD DS: Admitting Diagnosis Discharge Date 12/02/2020 Admitting Diagnosis Pneumonia DS: Discharge Diagnosis Discharge Diagnosis (1) Weakness generalized: Code(s): R53.1 - Weakness Status: Acute Assessment and Plan: * Possibly secondary to infection * PT OT and speech therapy consulted (2) Pneumonia: Qualifiers: Laterality: bilateral Lung location: unspecified part of lung Pneumonia type: due to unspecified organism Qualified Code(s): J18.9 - Pneumonia, unspecified organism Code(s): J18.9 - Pneumonia, unspecified organism Status: Acute Assessment and Plan: * Chest x-ray indicates pneumonia * WBCs 14.0>16.0 worsening * Blood culture pending * Continue azithromycin and Rocephin * Continue nebulizers (3) Afib: Code(s): I48.91 - Unspecified atrial fibrillation Status: Acute Assessment and Plan: * EKG on admission indicates A. fib with RVR with a heart rate of 101, repeat indicates A. fib with RVR with a heart rate of 123 * Patient given carvedilol 10 mg 1 time * Spoke with patient's director internal communications Dr. Mcmahon. EKG faxed to his office. Patient started on metoprolol 50 mg every 12 hours Eliquis 2.5 twice daily and discontinue losartan per Dr. Mcmahon * Will discontinue Plavix * Will need to follow-up with Dr. 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 Allen * patient NPO, swallow eval today (5) Abnormal CT of brain: Code(s): R90.89 - Other abnormal findings on diagnostic imaging of central nervous system Status: Acute Assessment and Plan: * CT of the head indicates Partially visualized low density mass with nodular margins in the right neck, suspicious for necrotic malignancy. * MRI ordered for Tuesday (6) Chronic kidney disease: Code(s): N18.9 - Chronic kidney disease, unspecified Status: Acute Assessment and Plan: * Creatinine 2.29 patient appears to be at baseline his creatinine ranged from1.79-2.34 * Avoid nephrotoxic agent * Renal dose medication * Continue IV hydration (7) BPH (benign prostatic hyperplasia): Code(s): N40.0 - Benign prostatic hyperplasia without lower urinary tract symptoms Status: Acute Assessment and Plan: * Proscar and Flexeril on hold. Patient n.p.o. (8) Swelling of lower extremity: Code(s): M79.89 - Other specified soft tissue disorders Status: Acute Assessment and Plan: * Chronic * Continue Lasix * Acute echo on 10/30 indicates : - Left atrial chamber dimension is moderately enlarged. - Right atrial chamber dimension is moderately enlarged. -There is severe aortic valve sclerosis. -There is moderate to severe aortic valve stenosis with a peak velocity of 289 cm/s, mean gradient of 12 mmHg, and aortic valve area of 1.0 cm2. -The mitral valve has mildly calcified annulus. -There is mild mitral valve regurgitation. -There is mild to moderate tricuspid valve regurgitation. -Moderate pulmonary hypertension, estimated pulmonary arterial systolic pressure is 53 mmHg. -Dilated inferior vena cava with >50% collapse upon inspiration consis
--- NOTE | 2020-12-02 13:11 | PM.TDS ---
Transfer Discharge Sum: Prov Provider Date of admission: 11/30/20 20:12 Primary care physician: Ok Allen DO Admitting clinician: Liyah Ruffin MD DS: Admitting Diagnosis Discharge Date 12/02/2020 Admitting Diagnosis Pneumonia DS: Discharge Diagnosis Discharge Diagnosis (1) Weakness generalized: Code(s): R53.1 - Weakness Status: Acute Assessment and Plan: Possibly secondary to infection PT OT and speech therapy consulted (2) Pneumonia: Qualifiers: Laterality: bilateral Lung location: unspecified part of lung Pneumonia type: due to unspecified organism Qualified Code(s): J18.9 - Pneumonia, unspecified organism Code(s): J18.9 - Pneumonia, unspecified organism Status: Acute Assessment and Plan: Chest x-ray indicates pneumonia WBCs 14.0>16.0 worsening Blood culture pending Continue azithromycin and Rocephin Continue nebulizers (3) Afib: Code(s): I48.91 - Unspecified atrial fibrillation Status: Acute Assessment and Plan: EKG on admission indicates A. fib with RVR with a heart rate of 101, repeat indicates A. fib with RVR with a heart rate of 123 Patient given carvedilol 10 mg 1 time Spoke with patient's bell staff Dr. Mcmahon. EKG faxed to his office. Patient started on metoprolol 50 mg every 12 hours Eliquis 2.5 twice daily and discontinue losartan per Dr. Mcmahon Will discontinue Plavix Will need to follow-up with Dr. Mcmahon Continue telemetry (4) Wagoner's palsy: Code(s): G51.0 - Wagoner's palsy Status: Acute Assessment and Plan: On 09/23/2020 patient diagnosed with Wagoner's palsy Will follow up with his primary care physician Dr. Allen patient NPO, swallow eval today (5) Abnormal CT of brain: Code(s): R90.89 - Other abnormal findings on diagnostic imaging of central nervous system Status: Acute Assessment and Plan: CT of the head indicates Partially visualized low density mass with nodular margins in the right neck, suspicious for necrotic malignancy. MRI ordered for Tuesday (6) Chronic kidney disease: Code(s): N18.9 - Chronic kidney disease, unspecified Status: Acute Assessment and Plan: Creatinine 2.29 patient appears to be at baseline his creatinine ranged from1.79-2.34 Avoid nephrotoxic agent Renal dose medication Continue IV hydration (7) BPH (benign prostatic hyperplasia): Code(s): N40.0 - Benign prostatic hyperplasia without lower urinary tract symptoms Status: Acute Assessment and Plan: Proscar and Flexeril on hold. Patient n.p.o. (8) Swelling of lower extremity: Code(s): M79.89 - Other specified soft tissue disorders Status: Acute Assessment and Plan: Chronic Continue Lasix Acute echo on 10/30 indicates : - Left atrial chamber dimension is moderately enlarged. - Right atrial chamber dimension is moderately enlarged. -There is severe aortic valve sclerosis. -There is moderate to severe aortic valve stenosis with a peak velocity of 289 cm/s, mean gradient of 12 mmHg, and aortic valve area of 1.0 cm2. -The mitral valve has mildly calcified annulus. -There is mild mitral valve regurgitation. -There is mild to moderate tricuspid valve regurgitation. -Moderate pulmonary hypertension, estimated pulmonary arterial systolic pressure is 53 mmHg. -Dilated inferior vena cava with >50% collapse upon inspiration consistent with elevated right atrial pressure, 10 mmHg. Will need to follow-up with primary care physician (9) ARLINE (obstructive sleep apnea): Code(s): G47.33 - Obstructive sleep apnea (adult) (pediatric) Status: Chronic Assessment and Plan: Continue CPAP (10) History of cerebrovascular accident: Code(s): Z86.73 - Personal history of transient ischemic attack (TIA), and cerebral infarction without residual deficits Status: Resolved
--- NOTE | 2020-12-02 15:19 | PC.NURSE ---
Patient transferred to [facility]. for further care following abnormal imaging reports. Beverley TORO at [facility] took report and patient will be placed in Rm. 211. EMS providing hosp. to hosp. transport. Personal belongings have been collected and family will be notified for pick and shovel worker
== END 2020-12-02 15:20 | disposition short-term general hospital (02) | DRG 193 ==
LOC: CHSED 18:25 → CHS2ND 19:18
PROVIDERS: Emergency Medicine; Nurse Practitioner; Admitting Provider Emergency Medicine; Emergency Provider Emergency Medicine; PCP Family Medicine; Visit Provider Emergency Medicine
DX: J18.9 Pneumonia, unspecified organism (principal); I10 Essential (primary) hypertension; G47.33 Obstructive sleep apnea (adult) (pediatric); I26.99 Other pulmonary embolism without acute cor pulmonale; J90 Pleural effusion, not elsewhere classified; Z87.891 Personal history of nicotine dependence; Z20.822 Contact with and (suspected) exposure to COVID-19; N39.0 Urinary tract infection, site not specified; J98.11 Atelectasis; I12.9 Hypertensive chronic kidney disease with stage 1 through stage 4 chronic kidney disease, or unspecified chronic kidney disease; N18.9 Chronic kidney disease, unspecified; I08.3 Combined rheumatic disorders of mitral, aortic and tricuspid valves; I27.20 Pulmonary hypertension, unspecified; M79.89 Other specified soft tissue disorders; N40.0 Benign prostatic hyperplasia without lower urinary tract symptoms; G51.0 Bell's palsy; G47.30 Sleep apnea, unspecified; R93.89 Abnormal findings on diagnostic imaging of other specified body structures; Z96.641 Presence of right artificial hip joint; Z86.73 Personal history of transient ischemic attack (TIA), and cerebral infarction without residual deficits
CPT/HCPCS: 36415; 36600; 70450; 71045; 78580; 80053; 81001; 82805; 82948; 83605; 83735; 83880; 84484; 85025; 85027; 86140; 87040; 87086; 87426; 93005; 94002; 94003; 94640; 94660; 96361; 96365; 96375; 97161; 99285; A9270; A9540; C9113; C9803; J0456; J0696; J1650; J1940; J2930; J7040

== ENCOUNTER 2020-12-02 16:28 | Inpatient (IN) | payer MEDICARE, SELFPAY ==
[2020-12-02] VITALS (14 sets, daily range): BP systolic 97–111; BP diastolic 67–74; PULSE 101–142; RESP 28–49; TEMP 36.8–37.6; O2SAT 92–99; BMI 29.5
--- NOTE | ~2020-12-02 | XR_ITS ---
XR chest-chest tube insert/pos DATE: 12/02/2020 19:00 INDICATION: Right chest tube placement TECHNIQUE: Portable upright AP chest on 12/02/2020 at 1855 hours COMPARISON: 12/02/2020 portable AP chest FINDINGS: Apical right pneumothorax, the right lung apex down approximately 2.5 cm. There is a chest tube overlying the lower right thorax. There is diminished opacification of the right hemithorax since 12/02/2020 at 1133 hours. There is patchy infiltrate throughout the right lung, to a lesser extent the left lung. Cardiomegaly. Diffuse osteopenia. Bilateral rotator cuff atrophy. IMPRESSION: Apical right pneumothorax, the right lung apex down approximately 2.5 cm. There is a chest tube overlying the lower right thorax. There is diminished opacification of the right hemithorax since 12/02/2020 at 1133 hours. There is patchy infiltrate throughout the right lung, to a lesser extent the left lung. Cardiomegaly. Reviewed, dictated and finalized at [facility]. Reviewed, dictated and finalized at location [facility]. IMPRESSION: Apical right pneumothorax, the right lung apex down approximately 2 .5 cm. There is a chest tube overlying the lower right thorax. There is diminished opacification of the right hemithorax since 12/02/2020 at 11 33 hours. There is patchy infiltrate throughout the right lung, to a lesser extent the le ft lung. Cardiomegaly.
--- NOTE | ~2020-12-02 | XR_ITS ---
EXAMINATION: XR chest 1V portable EXAM DATE: 12/03/2020 08:58 INDICATION: chest tube/ R pneumothorax . TECHNIQUE: Portable AP frontal chest x-ray was obtained. Comparison is made to prior examination from yesterday. FINDINGS: There is a right-sided chest tube overlying expected position. Small right apical pneumotho rax, pleural reflection indicated with about 1 cm gap at the apex, mild improvement. Small right pleu ral effusion (hydropneumothorax) Moderate amount of right greater than left airspace disease which is ill-defined and not significantl y changed, pneumonia and/or edema. Cardiac silhouette is enlarged but stable in size compared to prio r exam. There are mild bony degenerative changes. There are cholecystectomy clips. IMPRESSION: 1. Small right apical pneumothorax. 2. Moderate edema and/or pneumonia. Reviewed, dictated and finalized at location [facility].
--- NOTE | ~2020-12-02 | US_ITS ---
EXAMINATION: US venous doppler [facility] DATE: 12/03/2020 10:54 INDICATION: Bilateral lower limb swelling and erythema. TECHNIQUE: Grayscale ultrasound images without and with compression and Doppler ultrasound images of the bilateral lower extremity veins were obtained. COMPARISON: None. FINDINGS: Nonocclusive deep venous thrombosis in one of the paired right posterior tibial veins. The second rig ht posterior tibial vein is patent and compressible. The visualized portions of right common femoral vein, profunda (deep) femoral vein, femoral vein, popliteal vein, peroneal veins, gastrocnemius vein and greater saphenous vein outflow are patent. The visualized portions of left common femoral vein, profunda femoral vein, femoral vein, popliteal v ein, posterior tibial veins, peroneal veins, gastrocnemius vein and greater saphenous vein outflow ar e patent. IMPRESSION: 1. Right sided [id number] deep venous thrombosis in one of the paired posterior tibial veins at the right calf. 2. No left-sided deep venous thrombosis. 3. Increased venous pulsatility extending to the bilateral popliteal and peroneal veins which can be seen in the setting of tricuspid regurgitation, right heart failure or other cause of elevated right heart pressures. Reviewed, dictated and finalized at location A. IMPRESSION: 1. Right sided [id number] deep venous thrombosis in one of the paired post erior tibial veins at the right calf. 2. No left-sided deep venous thrombosis. 3. Increased venous pulsatility extending to the bilateral popliteal and perone al veins which can be seen in the setting of tricuspid regurgitation, right hea rt failure or other cause of elevated right heart pressures.
--- NOTE | 2020-12-02 16:20 | PC.NURSE ---
This patient, Romie Yo, was admitted to IMU Room 211-01. Patient/family oriented to hospital policies and general routines including ID bracelet, bed and alarms, visiting hours, pain management, procedures, bathroom and other care routines, personal items, smoking policy, room service/diet, and visiting hours. Information on how to activate the Rapid Response Team has been discussed. Patient/Family are encouraged to report perceived risks to care and to ask questions if they do not understand what they are told or what they should do.
[2020-12-02 16:55] LABS: Alveolar/Arterial O2 Gradient 397.9 mmHg; Base Excess ABG 7.6 mEq/l (+/-2.0); Fractional Inspired Oxygen 75 %; HCO3 ABG 35.5 mEq/l (22.0-26.0); Oxygen Content ABG 13.4 %vol (16.0-22.0); Oxygen Saturation ABG 89.7 % (95.0-100.0); Oxyhemoglobin 88.1 % THb (90.0-100.0); PO2 ABG 63.2 mmHg (80.0-100.0); PO2 FiO2 Ratio Arterial Blood 0.84 %; Total Hemoglobin 10.8 g/dL (12.0-18.0); pH ABG 7.327 (7.350-7.450)
[2020-12-02 16:57] LABS: Device NON-INVASIVE VENT; PCO2 ABG 69.3 mmHg (35.0-45.0); Site Drawn RIGHT BRACHIAL
[2020-12-02 16:58] LABS: Non-Invasive Expiratory Pressure 6 CMH2O; Non-Invasive Inspiratory Pressure 12 CMH2O; Non-Invasive Vent Rate 14 /MIN
[2020-12-02] MEDS: DEXTROSE 5%/0.45% SOD CHL 1,000 ML 100 ML IV CONT (17:30)
[2020-12-02] MEDS: LORazepam INJ (*CRX) 2 MG/ML VIAL 0.5 MG IV PUSH (17:31)
[2020-12-02] MEDS: DIGOXIN INJ 250 MCG/ML 2 ML AMP (*BKC) IV PUSH (17:31)
--- NOTE | 2020-12-02 17:48 | PM.IMHP ---
H&P: HPI History of Present Illness Date/Time: 12/02/20 17:48 this is a 85-year-old male patient year old male patient who went to urgent care on 12/01/2020 for complaints of weakness. Patient is a very poor historian. The patient was placed on a non-rebreather and his CPAP. The patient was found to be in AFib with RVR at the time which is a new onset. The patient was placed on a azithromycin and Rocephin for urinary tract infection and pneumonia. A CT of his head visualize is a low-density mass with nodular margins in the right neck suspicious for necrotic malignancy. An MRI had been scheduled for Tuesday. The patient also has a creatinine of 2.9 and his baseline is usually 1.7 a 2.34. The patient had an echo on 10/30 which indicates- Left atrial chamber dimension is moderately enlarged. - Right atrial chamber dimension is moderately enlarged. -There is severe aortic valve sclerosis. -There is moderate to severe aortic valve stenosis with a peak velocity of 289 cm/s, mean gradient of 12 mmHg, and aortic valve area of 1.0 cm2. -The mitral valve has mildly calcified annulus. -There is mild mitral valve regurgitation. -There is mild to moderate tricuspid valve regurgitation. -Moderate pulmonary hypertension, estimated pulmonary arterial systolic pressure is 53 mmHg. -Dilated inferior vena cava with >50% collapse upon inspiration consistent with elevated right atrial pressure, 10 mmHg. The patient was also found have a urinary tract infection. The report that was received from [facility] provider stated that the patient had a large right pleural effusion and would need a possible thoracentesis. I spoke with the interventional radiologist who stated that the patient had receive Lovenox at 9:00 a.m. this morning and would need to wait 12 hours before he could do a thoracentesis. However after a review the chest x-ray it indicated a total collapse of the right lung with a large right pleural effusion with mediastinal shift to the right. I discussed the case with the surgeon Dr. Diez who stated that he would place a chest tube and I also spoke with the patient's Socorro who gave me permission for the chest tube. I did speak with the concerning the patient's code status and she stated that the patient is a DNR. We also talked about his right neck nodule which is suspicious for necrotic malignancy. I explained that the patient would need an MRI however he is not stable enough to get an MRI today. The is okay with this. ABGs were obtained once the patient was received to [facility] and his pH is worsening and his CO2 is 69.3. We did change the settings on his BiPAP machine. Patient is also noted to be in AFib RVR however his blood pressure is low at this time. I gave him some Ativan and some digoxin. However his heart rate still remains elevated and his respirations are in the 40s. The patient is a DNR. The patient is admitted to inpatient services on the date of service of 12/02/2020. Chief Complaint: Pulmonary emboli and large pleural effusion Review of Systems Review of Systems: ROS unobtainable: Yes unobtainable due to mental status PMFSH Past Medical History Medical History (Updated 12/02/20 @ 18:31 by Joselyn Mcneil NP) Chronic anemia Chronic kidney disease History of cerebrovascular accident Hypertension ARLINE (obstructive sleep apnea) Surgical History Surgical History History of right hip replacement Family History Family History (Updated 12/02/20 @ 18:02 by Joselyn Mcneil NP) Unknown Family history unknown Other Family history non-contributory Social History Social History (Updated 12/02/20 @ 18:23 by Joselyn Mcneil NP) Social History: The patient is and 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 The patient is a DNR. The patient is retired. The patient has at least 2 other childr
[2020-12-02] MEDS: LIDO 1%/EPINEPHRINE 1:100,000 50 ML VIAL 10 ML INFILTRATE (18:30)
[2020-12-02 18:36] LABS: Lactic Acid Reflex 1.3 mmol/L (0.7-2.1)
[2020-12-02 18:37] LABS: Magnesium 2.2 mg/dL (1.6-2.3)
--- NOTE | 2020-12-02 19:10 | PM.CNGS ---
Assessment and Plan Assessment and plan (1) Pleural effusion: Onset Date: ~11/2020 Code(s): J90 - Pleural effusion, not elsewhere classified Status: Acute Assessment and Plan: Recomend placement of a large bore Chest tube to continuously drain the apparrent large Rt. pleural effusion. and thereby give the pt. more lung capacity. Sine the CXR also pointed out mediastinal shift. Placing a CT may aslo releave this pressure and allow better blood flow ans cardiac function. (2) Neck mass: Code(s): R22.1 - Localized swelling, mass and lump, neck Status: Acute (3) Pulmonary emboli: Onset Date: ~12/02/20 Code(s): I26.99 - Other pulmonary embolism without acute cor pulmonale Status: Acute Assessment and Plan: Suspecte on Nuc Med lung scan On anticoagulation. (4) Chronic kidney disease: Code(s): N18.9 - Chronic kidney disease, unspecified Status: Chronic (5) Pneumonia: Onset Date: Unknown Qualifiers: Laterality: bilateral Lung location: unspecified part of lung Pneumonia type: due to unspecified organism Qualified Code(s): J18.9 - Pneumonia, unspecified organism Code(s): J18.9 - Pneumonia, unspecified organism Status: Acute Assessment and Plan: On emperic antibiotics. will send some pleural fluid off for Gram stain and C & S. 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 Patient is a very poor historian. The patient was placed on a non-rebreather and some CPAP. He was admitted to [facility] with further workup. The patient was found to be in AFib with RVR at the time which is a new onset. The patient was placed on a azithromycin and Rocephin for urinary tract infection and pneumonia. A CT of his head visualized a low-density mass with nodular margins in the right neck suspicious for a necrotic malignancy. An MRI of the neck had been scheduled for Tuesday. The patient also has a elevated creatinine of 2.9 with his baseline usually being 1.7 a 2.34. The patient had an echocardiogram as an outpt on 10/30 which indicates- Left atrial chamber dimension is moderately enlarged with Other significant findings. Dr. noonan is his product safety professional. I was consulted because after the patient arrived further review of his situation and recent chest x-ray shows that he has a white out on the right side and the radiologist read this is a large pleural effusion. There is also some evidence for lung collapse on the regular radiology chest x-ray. Therefore, was contacted by 2 lead to see fat was available to place a chest tube in view of the patient's increasing respiratory distress. Patient was on BiPAP when I entered the room. He is not really answering questions not attending to the examiner. Review of Systems Review of Systems: ROS unobtainable: Yes unobtainable due to medical condition PMFSH Past Medical History Medical History Chronic anemia Chronic kidney disease History of cerebrovascular accident Hypertension ARLINE (obstructive sleep apnea) Surgical History Surgical H
--- NOTE | 2020-12-02 19:16 | W.PM.PROC2 ---
Procedure Note - Detailed Date of Procedure 12/02/20 Pre-op Diagnosis 1.Large right pleural effusion with significant rt. lung collapse 2.Acute Resp Failure Post-op Diagnosis same Procedure Performed Chest tube Placement (tube thoracostomy) Surgeon Skip Diez MD Departmental Shipping Clerk none Anesthesia other (Local with 2% Xylocaine with epinephrine.) Indications Worsening Rt. pleural effussion witth right lung collapse Findings normal chest wall anatomy on the side of tube placement. Immediate drainage of about 400 - 500 cc of serous pleural fluid. Description of Procedure Standard full size tube thoracostomy: after Obtaining phone permit from the patient's POA his obtain by the nurses, I carefully prepped the entire rightt chest wall with the patient lying slightly head up and supine. The arm on the side of chest tube placement was up above the head. Following this using sterile technique I carefully prepped the lateral right chest wall in the axillary area this was draped off sterilely. Time-out was performed with the team helping me. Following this local anesthetic was infiltrated over the 6th rib and an incision was made using a 15 blade knife on that rib and I then tunneled up over the 5th rib and then using a hemostat penetrated the intercostal space and the parietal pleura. The hemostat was spread and a gush of serous fluid was noted. A Peon was then inserted and spread more. Following this the 32 Fr. size chest tube was carefully inserted after placing a finger into the chest cavity and sweeping it around the inside of the nearby chest cavity. The chest tube was inserted posteriorly and medially. It was inserted into about the 10 cm duy and then sutured into place with a U shape stitch. I used 0 silk which was tied with just 1 knot and then wrapped around the tube and then tied with 3 knots. Vaseline gauze was applied around the tube as dressing followed by a 3 x 3 split dressing and then 4 pieces of nylon tape that were cut with 3 arms using the center arm of each piece of tape to wrap around the tube to hold it in place. The tube was then connected to Pleur-Evac and the Pleur-Evac left to water seal. there was immediate drainage of about 430 cc of fluid. Some of the fluid was collected sterilely from the tubing and sent for pleural studies including a Gram stain C&S. The patient tolerated the procedure well. Implants 32 Fr. chest tube Estimated Blood Loss 2 Drains Yes (one size 32 Fr. chest tube) Packing No Pathology other ( Pleural fluid sent for Gram stain and C&S, pleural fluid studies by Medicine (see orders).) Complications No immediate complications Condition stable Disposition floor ( patient was in his room in IMU for the procedure and stated that room. (211))
--- NOTE | 2020-12-02 19:25 | PM.CNCAR ---
Assessment and Plan Assessment and plan (1) Afib: Code(s): I48.91 - Unspecified atrial fibrillation Status: Acute Assessment and Plan: Due to relative hypotension and difficulty controlling HR, will attempt at chemical cardioversion to sinus rhythm with Amiodarone. No bolus given soft BP. Can give Metoprolol tartate 2.5 mg-5 mg IV every 2 hours prn for HR>130 bpm. [id number] 5. Will need anticoagulation. (2) Collapsed lung: Code(s): J98.19 - Other pulmonary collapse Status: Acute Assessment and Plan: S/P right lung chest tube. (3) Pulmonary emboli: Code(s): I26.99 - Other pulmonary embolism without acute cor pulmonale Status: Acute Assessment and Plan: Was on Lovenox but on hold due to need for chest tube. (4) Pneumonia: Qualifiers: Laterality: bilateral Lung location: unspecified part of lung Pneumonia type: due to unspecified organism Qualified Code(s): J18.9 - Pneumonia, unspecified organism Code(s): J18.9 - Pneumonia, unspecified organism Status: Acute Assessment and Plan: On antibiotics per hospitalist. (5) UTI (urinary tract infection): Code(s): N39.0 - Urinary tract infection, site not specified Status: Acute Assessment and Plan: On antibiotics per hospitalist. (6) Neck mass: Code(s): R22.1 - Localized swelling, mass and lump, neck Status: Acute Assessment and Plan: Will need further assessment once stabilized. (7) Chronic kidney disease: Code(s): N18.9 - Chronic kidney disease, unspecified Status: Chronic Assessment and Plan: Monitor. (8) ARLINE (obstructive sleep apnea): Code(s): G47.33 - Obstructive sleep apnea (adult) (pediatric) Status: Chronic Assessment and Plan: On Bipap currently. History of Present Illness History of Present Illness Consult date/time: 12/02/20 19:25 Reason for consult: Atrial fib with RVR. 85 yr old man who is my regular patient who I saw once before and is a patient of Dr. Allen was admitted to [facility] on 11/30/20 for weakness. He has a history of stroke in 2010 and 2011, ARLINE on CPAP, hypertension, edema of legs, CKD stage III-IV, DNR code status. He was found to go in atrial fib with RVR, found to have pneumonia and UTI and acute respiratory failure. He was treated with rate control medications including Metoprolol and Lovenox, and antibiotics. A V/Q scan showed high probability for pulm embolism and CXR shows collapsed right lung with large pleural effusion. He was then transferred to here to [facility] today for higher acuity care. Dr. Diez placed right chest tube today. Currently patient is on Bipap and unresponsive to verbal stimulus. His HR is at 130 in atrial fibrillation. He is currently NPO and chart mentioned possible aspiration. Digoxin IV 250 mcg x1 has been given. Cardiovascular Procedures Echo/MUGA:: 10/30/20 Echo: EF >70%, mod LVH, mod biatrial enlargement, mod-severe (UBALDO 1.0 cm2), mild MR, mild-mod TR,RVSP 53 mmHg. 10/14/20 Echo: EF TDS, 60-65%, mild LVH, mild LAE, mod-severe (UBALDO 1.0 cm2), trace AI, mild MR, mild MAC, RVSP 59 mmHg. Electrophysiology:: 11/30/20 EKG: Atrial fibrillation with RVR at 150 bpm. 10/13/20 EKG: Sinus rhythm, frequent PAC's, LAD, IRBBB, delayed precordial R/S transition. Reason For Visit: Acute Resp Failure Review of Systems Review of Systems: ROS unobtainable: Yes unobtainable due to medical condition PMFSH Past Medical History Medical History Chronic anemia Chronic kidney disease History of cerebrovascular accident Hypertension ARLINE (obstructive sleep apnea) Surgical History Surgical History History of right hip replacement Family History Family History Unknown Family hi
[2020-12-02 20:04] LABS: Basophils Percent Auto 0.2 % (0.2-1.2); Hematocrit 33.1 % (42.0-52.0); Hemoglobin 9.8 g/dL (14.0-18.0); Immature Granulocyte Absolute 0.35 K/mm3 (0.00-0.031); Immature Granulocyte Percent A 1.9 % (0-0.5); Lymphocytes Absolute Auto 0.67 K/mm3 (0.9-3.2); Lymphocytes Percent Auto 3.6 % (18.3-44.2); Mean Corpuscular HGB Conc 29.6 g/dl (32-36); Mean Corpuscular Hemoglobin 30.2 pg (26-34); Mean Corpuscular Volume 101.8 fl (80-100); Mean Platelet Volume 10.6 fl (7.4-10.4); Monocytes Absolute Auto 0.2 K/mm3 (0.1-0.6); Monocytes Percent Auto 1.3 % (2.6-8.5); Neutrophils Absolute Auto 17.3 K/mm3 (1.3-6.7); Platelet Count Result 346 k/mm3 (150-375); Red Blood Count 3.25 M/mm3 (4.6-6.20); Red Cell Distribution Width 16.3 % (11.5-14.5); White Blood Count 18.6 K/mm3 (4.5-10.0)
[2020-12-02 20:14] LABS: INR 1.1; Prothrombin Time 13.9 Seconds (11.1-14.7)
[2020-12-02 20:15] LABS: Partial Thromboplastin Time 37.7 SECONDS (22.3-36.8)
[2020-12-02 20:21] LABS: Hypochromasia 1+ (NORMAL); Platelet Estimate Adequate (Adequate)
[2020-12-02 20:23] LABS: Alveolar/Arterial O2 Gradient 437.6 mmHg; Base Excess ABG 5.9 mEq/l (+/-2.0); Fractional Inspired Oxygen 100 %; HCO3 ABG 36.8 mEq/l (22.0-26.0); Oxygen Content ABG 13.8 %vol (16.0-22.0); Oxygen Saturation ABG 98.6 % (95.0-100.0); Oxyhemoglobin 97.2 % THb (90.0-100.0); PO2 ABG 170.5 mmHg (80.0-100.0); PO2 FiO2 Ratio Arterial Blood 1.71 %; Total Hemoglobin 9.8 g/dL (12.0-18.0)
[2020-12-02 20:24] LABS: pH ABG 7.163 (7.350-7.450)
[2020-12-02 20:26] LABS: Device NON-INVASIVE VENT; Modified Allen's Test Unable to perform; Non-Invasive Expiratory Pressure 8 CMH2O; Non-Invasive Inspiratory Pressure 14 CMH2O; Non-Invasive Vent Rate 14 /MIN; PCO2 ABG 104.9 mmHg (35.0-45.0); Site Drawn RIGHT RADIAL
[2020-12-02 20:40] LABS: Appearance Pleural Fluid Hazy (Clear); Color Pleural Fluid Yellow (Colorless); Lymphocytes Pleural Fluid 63 %; Mesothelial Cells Pleural Flui 5 %; Monocytes Pleural Fluid 1 %; Neutrophils Pleural Fluid 31 % (0-25); Nucleated Cell Pleural Fluid 5283 /uL (0-1000); Pleural fluid source Pleural fluid; RBC Pleural Fluid 8182 /uL (0-0)
[2020-12-02] MEDS: AMIODARONE 360 MG/D5W 200 ML 360 MG/200 ML BAG 33.33 MG IV CONT (21:34)
[2020-12-02] MEDS: AMIODARONE 150 MG/D5W 100 ML 150 MG/100 ML BAG 600 MG IV CONT (22:21)
[2020-12-02] MEDS: HEPARIN SOD/D5W 100 UNITS/ML 25,000 UNITS/250 ML BAG 12 UNITS IV CONT (22:28)
[2020-12-02] MEDS: ALBUTEROL SULFATE NEB 2.5 MG/0.5 ML INH INHALATION (22:50)
[2020-12-02] MEDS: IPRATROPIUM BR 0.02% INH SOLN 0.5 MG/2.5 ML VIAL INHALATION (22:50)
[2020-12-03] VITALS (15 sets, daily range): BP systolic 89–105; BP diastolic 56–74; PULSE 53–119; RESP 24–49; TEMP 36.6–36.9; O2SAT 76–99
[2020-12-03] MEDS: IPRATROPIUM BR 0.02% INH SOLN 0.5 MG/2.5 ML VIAL INHALATION ×2 (01:58→10:44)
[2020-12-03] MEDS: ALBUTEROL SULFATE NEB 2.5 MG/0.5 ML INH INHALATION ×2 (01:58→10:44)
[2020-12-03] MEDS: SCOPOLAMINE 1.5 MG PATCH TRANSDERM (02:53)
[2020-12-03] MEDS: AMIODARONE 360 MG/D5W 200 ML 360 MG/200 ML BAG 16.67 MG IV CONT ×2 (03:04→12:58)
[2020-12-03 03:17] LABS: Add Urine Microscopic? YES; Appearance Urine Clear (Clear); Bacteria Urine Trace /hpf; Bilirubin Urine Negative (Negative); Blood Urine 1+ (Negative); Color Urine Yellow (Yellow); Glucose Urine UA Negative (Negative); Ketones Urine Negative (Negative); Leukocyte Esterase Ur Trace LEU/UL (Negative); Mucus Urine Rare /lpf; Nitrate Urine Negative (Negative); Protein Urine 1+ mg/dL (Negative); Specific Grav Ur 1.016 (1.001-1.035); Squamous Epithelial Cell Urine Rare /hpf (Few); Urobilinogen Urine Negative mg/dL (<2.0); WBC Urine 21-30 /hpf
[2020-12-03 05:01] LABS: Basophils Percent Auto 0.1 % (0.2-1.2); Immature Granulocyte Absolute 0.31 K/mm3 (0.00-0.031); Immature Granulocyte Percent A 1.4 % (0-0.5); Lymphocytes Absolute Auto 1.43 K/mm3 (0.9-3.2); Lymphocytes Percent Auto 6.5 % (18.3-44.2); Mean Corpuscular Hemoglobin 29.6 pg (26-34); Mean Corpuscular Volume 98.7 fl (80-100); Mean Platelet Volume 10.7 fl (7.4-10.4); Monocytes Absolute Auto 1.8 K/mm3 (0.1-0.6); Monocytes Percent Auto 8.1 % (2.6-8.5); Neutrophils Absolute Auto 18.3 K/mm3 (1.3-6.7); Neutrophils Percent Auto 83.9 % (45.5-73.1); Platelet Count Result 331 k/mm3 (150-375); Red Blood Count 3.04 M/mm3 (4.6-6.20); Red Cell Distribution Width 15.9 % (11.5-14.5); White Blood Count 21.9 K/mm3 (4.5-10.0)
[2020-12-03 05:11] LABS: INR 1.2; Prothrombin Time 14.9 Seconds (11.1-14.7)
[2020-12-03 05:13] LABS: Partial Thromboplastin Time 113.5 SECONDS (22.3-36.8)
[2020-12-03 05:17] LABS: Lactic Acid Reflex 1.6 mmol/L (0.7-2.1)
[2020-12-03 05:24] LABS: Alanine Aminotransferase 33 U/L (4-50); Albumin Level 3.3 g/dL (3.5-5.1); Alkaline Phosphatase 104 U/L (38-126); Anion Gap 13 mmol/L (8-16); Aspartate Amino Transferase 22 U/L (17-59); Bilirubin,Total 0.5 mg/dL (0.2-1.3); Blood Urea Nitrogen 84 mg/dL (9-20); CRP 4.1 mg/dL (<1.0); Calcium 8.8 mg/dL (8.4-10.2); Carbon Dioxide 33 mmol/L (22-30); Chloride 98 mmol/L (98-107); Estimated CRCL calculation 16 ml/min; Estimated Glomerular Filt Rate 21; Glucose 119 mg/dL (65-110); Lactate Dehydrogenase 260 U/L (313-618); Magnesium 2.3 mg/dL (1.6-2.3); Sodium 144 mmol/L (137-145)
--- NOTE | 2020-12-03 06:51 | ECG_ITS ---
Measurements Intervals [place] Rate: 113 P: ID: 0 QRS: -29 QRSD: 81 T: 31 QT: 286 QTc: 393 Interpretive Statements ATRIAL FIBRILLATION WITH RAPID VENTRICULAR RESPONSE NONSPECIFIC ST & T-WAVE ABNORMALITY- HIGH LATERAL LEADS BASELINE WANDER- AVL, AVF, V3-V6 ABNORMAL ECG Electronically Signed On 12-03-2020 9:16:26 CDT by Luis Daniel Mcmahon D.O.
--- NOTE | 2020-12-03 07:30 | PM.PNCARD ---
Progress Note: A&P Assessment and Plan (1) Afib: Code(s): I48.91 - Unspecified atrial fibrillation Status: Acute Assessment and Plan: Due to relative hypotension and difficulty controlling HR, will attempt at chemical cardioversion to sinus rhythm with Amiodarone. On Amiodarone drip. Can give Metoprolol tartate 2.5 mg-5 mg IV every 2 hours prn for HR>130 bpm. [id number] 5. On heparin drip. Check EKG. (2) Collapsed lung: Code(s): J98.19 - Other pulmonary collapse Status: Acute Assessment and Plan: S/P right lung chest tube. (3) Pulmonary emboli: Onset Date: ~12/02/20 Code(s): I26.99 - Other pulmonary embolism without acute cor pulmonale Status: Acute Assessment and Plan: V/Q scan with high probability for PE. On heparin drip. (4) Pneumonia: Onset Date: Unknown Qualifiers: Laterality: bilateral Lung location: unspecified part of lung Pneumonia type: due to unspecified organism Qualified Code(s): J18.9 - Pneumonia, unspecified organism Code(s): J18.9 - Pneumonia, unspecified organism Status: Acute Assessment and Plan: On antibiotics per hospitalist. (5) UTI (urinary tract infection): Code(s): N39.0 - Urinary tract infection, site not specified Status: Acute Assessment and Plan: On antibiotics per hospitalist. (6) Neck mass: Code(s): R22.1 - Localized swelling, mass and lump, neck Status: Acute Assessment and Plan: Will need further assessment once stabilized. (7) Chronic kidney disease: Code(s): N18.9 - Chronic kidney disease, unspecified Status: Chronic Assessment and Plan: Monitor. (8) ARLINE (obstructive sleep apnea): Code(s): G47.33 - Obstructive sleep apnea (adult) (pediatric) Status: Chronic Assessment and Plan: On Bipap currently. (9) Aortic stenosis: Code(s): I35.0 - Nonrheumatic aortic (valve) stenosis Status: Acute Assessment and Plan: Mod-severe. Stable. Subjective Date/time seen: 12/03/20 07:30 Patient is unresponsive to verbal or painful stimuli. On Bipap. Exam Const: General: patient obtunded Resp: Auscultation: breath sounds absent (Left lung clear anteriorly) on the right Cardio: Jugular venous distension: no JVD Rate: tachycardic Rhythm: abnormal rhythm Heart sounds: Murmur heart sound present (II/ systolic murmur RICS) GI: GI Palp: No abdominal tenderness and Yes Soft to palpation Neuro: General: patient obtunded Extrem: Right lower extremity: edema Left lower extremity: edema Other: Mild edema of both legs Objective Data Vital Signs Vital Signs: Vital Signs - 24 hr 12/02/20 16:20 12/02/20 16:45 12/02/20 17:07 Temperature 99.7 F H Pulse Rate 130 H 111 H 139 H Respiratory Rate 32 H 37 H 29 H Blood Pressure 97/69 L Pulse Oximetry 95 92 92 12/02/20 17:31 12/02/20 18:00 12/02/20 19:55 Temperature Pulse Rate 142 H 138 H 116 H Respiratory Rate 36 H Blood Pressure Pulse Oximetry 93 12/02/20 20:00 12/02/20 21:34 12/02/20 22:00 Temperature 98.3 F Pulse Rate 127 H 118 H 119 H Respiratory Rate 28 H Blood Pressure 111/67 111/74 Pulse Oximetry 98 12/02/20 22:21 12/02/20 22:51 12/02/20 22:52 Temperature Pulse Rate 119 H 108 H 111 H Respiratory Rate 31 H 32 H Blood Pressure Pulse Oximetry 93 12/02/20 22:58 12/03/20 00:00 12/03/20 01:58 Temperature 98.0 F Pulse Rate 101 H 107 H 106 H Respiratory Rate 28 H 28 H 35 H Blood Pressure 95/56 L Pulse Oximetry 91 12/03/20 02:00 12/03/20 02:01 12/03/20 02:12 Temperature Pulse Rate 97 101 H 96 Respiratory Rate 43 H 37 H Blood Pressure Pulse Oximetry 91 12/03/20 03:04 12/03/20 04:00 12/03/20 06:00 Temperature 98.3 F Pulse Rate 104 H 104 H 108 H Respiratory Rate 24 H Blood Pressure 105/74 Pulse Oximetry 94 Intake/Output Intake/Output: Intake & O
--- NOTE | 2020-12-03 08:36 | PM.IMPN ---
Progress Note: A&P Assessment and Plan (1) Acute pneumothorax: Code(s): J93.83 - Other pneumothorax Status: Acute Assessment and Plan: Apical right pneumothorax with mediastinal shift to rt seen on CXR 12/02 S/p chest tube placement by surgery 12/02, Pleur-evac to water seal, immediate drainage at time of procedure ~430cc continue to monitor drainage, and cultures sent from procedure (2) Pulmonary emboli: Onset Date: ~12/02/20 Code(s): I26.99 - Other pulmonary embolism without acute cor pulmonale Status: Acute Assessment and Plan: Seen on VQ scan - perfusion defect involving majority of superior segment of left lower lobe & inf. segment of lingula, moderate sized defect at laeft apical segment & posterior LLL basilar ; several smaller perfusion defects throughtout left lung Unclear exactly how long this has been going on Patient is currently on heparin drip, aim to transition to therapeutic dose Eliquis - will also help stroke prevention from AFib (3) Atrial fibrillation with RVR: Code(s): I48.91 - Unspecified atrial fibrillation Status: Acute Assessment and Plan: Not previously known to patient HR controlled right now with amio drip - cards on board, transition off drip as they are comfortable (4) Acidosis, metabolic: Code(s): E87.2 - Acidosis Status: Acute Assessment and Plan: pH 7.1, normal anion gap partially compensated primary respiratory acidosis Currently pt on BiPap, ventilation will help blow off CO2 Given primary respiratory disorder, less inclined to benefit from bicarb drip, will ctm (5) UTI (urinary tract infection): Code(s): N39.0 - Urinary tract infection, site not specified Status: Acute Assessment and Plan: Leuk esterase on UA, UC is pending broad coverage with ctx & azx (6) Leukocytosis: Code(s): D72.829 - Elevated white blood cell count, unspecified Status: Acute Assessment and Plan: uti, possible pneumonia, reactive to several acute processes Additional Plan 85yo man with history of CVA, HTN, ARLINE, presenting to Urgent care on 11/30 for weakness. Workup has revealed several medical problems including a right-sided pneumothrax, several left-sided pulmonary emboli, and AFib with RVR. He continues to have severe hypercarbic respiratory failure with a severe partially compensated respiratory acidosis (pH 7.1). He is currently s/p chest tube placement, managed by surgery, cultures from immediate post-procedure drainage are pending, and appreciate any additional recommendations they can provide. Broad spectrum abx in mean time. HR well contrrolled on amio drip, Cards is on board, and appreciate recommendations regarding transition to po meds whenever they feel comfortable. Noted prn metoprolol ordered. He is requiring BiPap around the clock. Will probably reduce FiO2 today to prevent over-oxygenation, and try to blow off some CO2, and repeat ABG later on in the day. Hopefully this will also help with pH. Continue abx for the moment, and we'll see if pending cultures grow anything. Leukocytosis may be related to infection or any of the several other issues at present. At the very least will help with leukocytosis. Time Spent With Patient Time with patient: less than 15 minutes Subjective Date/time seen: 12/03/20 08:36 extensive interview not possible given pt level of distress would make it uncomfortable for him Review of Systems Review of Systems: extensive interview not possible ROS unobtainable: Yes unobtainable due to medical condition Exam Narrative: no extensive interview possible pt on several drips biPap, significant resp support Neck: Neck: no JVD Resp: Other: bipap FiO2 80% rt sided chest tube Cardio: Rate: abnormal rate Rhythm: abnormal rhythm GI: GI Palp: Yes Soft to palpation and Yes Tenderness to palpation present (GI) Objective Data Vital Signs Vital Signs: Vital Sign
[2020-12-03] MEDS: FUROSEMIDE INJ 40 MG/4 ML VIAL 20 MG IV PUSH (09:24)
[2020-12-03 12:02] LABS: EDCOVIDSCREEN Negative (Negative)
--- NOTE | 2020-12-03 17:02 | PM.PNGS ---
Progress Note: A&P Assessment and Plan (1) Pleural effusion: Onset Date: ~11/2020 Code(s): J90 - Pleural effusion, not elsewhere classified Status: Acute Assessment and Plan: Status post right chest tube placement for pleural effusion and Right lung collapse. ( I do not believe patient had a pneumothorax prior to placement of the chest tube. Probably that is some air up at the apex because we placed a chest tube) --- see yesterday's chest x-ray report showing significant pleural effusion causing the collapse of the right lung. (2) Leukocytosis: Code(s): D72.829 - Elevated white blood cell count, unspecified Status: Acute (3) Atrial fibrillation with RVR: Code(s): I48.91 - Unspecified atrial fibrillation Status: Acute Additional Plan okay to leave chest tube to water seal for patient's comfort. I think it is chest would probably feel backup with fluid limiting her his air exchange capacity and making him more uncomfortable than if we leave it in. DNR and family's wishes noted. Appreciate care of hospitalist. In view of comfort care plans I will sign off. However, please call if you wish me to remove the chest tube. Subjective Subjective Date/Time Seen: 12/03/20 08:02 Post Op day: 1 ( status post right thoracostomy tube placement) Patient reports: no new complaints and other ( patient seems to be breathing was somewhat labored respirations on BiPAP and not really responsive to verbal or physical stimuli.) Interval history: Patient unable to verbally interact. Review of Systems Review of Systems: ROS unobtainable: Yes unobtainable due to medical condition Exam Const: General: patient obtunded Nutritional Appearance: cachectic Chest: Chest palpation & inspection: other ( Right sided chest tube with reinforcement of entry site dressing) Other: The chest tube to water seal only. Approximately 800 cc out into Pleur-Evac plus will was sent for testing since placement of the chest tube. Serosanguineous fluid is present. No air leak at this time. Resp: Auscultation: diminished lung sounds bilateral Objective Data Vital Signs Vital Signs: Vital Signs - 24 hr 12/02/20 17:07 12/02/20 17:31 12/02/20 18:00 Temperature Pulse Rate 139 H 142 H 138 H Respiratory Rate 29 H Blood Pressure Pulse Oximetry 92 12/02/20 19:55 12/02/20 20:00 12/02/20 21:34 Temperature 36.8 C Pulse Rate 116 H 127 H 118 H Respiratory Rate 36 H 28 H Blood Pressure 111/67 111/74 Pulse Oximetry 93 98 12/02/20 22:00 12/02/20 22:21 12/02/20 22:51 Temperature Pulse Rate 119 H 119 H 108 H Respiratory Rate 31 H Blood Pressure Pulse Oximetry 12/02/20 22:52 12/02/20 22:58 12/03/20 00:00 Temperature 36.7 C Pulse Rate 111 H 101 H 107 H Respiratory Rate 32 H 28 H 28 H Blood Pressure 95/56 L Pulse Oximetry 93 91 12/03/20 01:58 12/03/20 02:00 12/03/20 02:01 Temperature Pulse Rate 106 H 97 101 H Respiratory Rate 35 H 43 H Blood Pressure Pulse Oximetry 91 12/03/20 02:12 12/03/20 03:04 12/03/20 04:00 Temperature 36.8 C Pulse Rate 96 104 H 104 H Respiratory Rate 37 H 24 H Blood Pressure 105/74 Pulse Oximetry 94 12/03/20 06:00 12/03/20 08:00 12/03/20 10:55 Temperature 36.6 C Pulse Rate 108 H 53 L 117 H Respiratory Rate 48 H 49 H Blood Pressure 104/56 L Pulse Oximetry 97 99 12/03/20 11:44 12/03/20 12:00 12/03/20 12:58 Temperature 36.9 C Pulse Rate 119 H 114 H Respiratory Rate 30 H Blood Pressure 89/64 L Pulse Oximetry 97 97 12/03/20 14:25 12/03/20 16:00 Temperature Pulse Rate 118 H 116 H Respiratory Rate 39 H Blood Pressure Pulse Oximetry 95 76 L Intake/Output Intake/Output: Intake & Output 11/30/20 12/01/20 12/02/20 12/03/20 23:59 23:59 23:59 23:59 Intake Total 400 472 Output Total 440 375 Balance -40 97 Meds/Results Medications: Active Medications Generic Name
[2020-12-03 17:03] LABS: Partial Thromboplastin Time 145.3 SECONDS (22.3-36.8)
[2020-12-05 12:55] LABS: Albumin Pleural Fluid 1.4 g/dL
[2020-12-05 15:09] LABS: Glucose Pleural Fluid 160 mg/dL; LDH Pleural Fluid 412 U/L; Total Protein Pleural Fluid <3.0 g/dL
[2020-12-09 15:13] LABS: Amylase, Pleural Fluid 40 U/L
--- NOTE | 2020-12-14 18:59 | PM.DDS ---
Discharge Summary Date and Time Date of : 12/03/20 Time of : 17:42 Provider Pronounced By: Josselin Vasquez RN Probable Cause of Probable Cause of : hypoxic respiratory failure related to pulmonary embolism and pneumothorax Summary Hospital Course: patient was an 85-year-old male with poor outpatient follow-up who presented to urgent care with complaints of respiratory distress, from which she was sent to [facility] urgency room. Upon workup it was discovered the patient several very serious comorbidities. He had a heart rhythm of atrial fibrillation, for which she was started on an amiodarone drip given that the rate was severely tachycardic. He was also put on blood thinners, related to a pulmonary embolism which was discovered on imaging of the lungs. Also found to have a pneumothorax on the right-hand side for which surgery placed a chest tube. At that time 1 patient was on BiPAP, and intubation seemed imminent, called patient's and sister, who came to bedside, and conveyed the patient is do not resuscitate, and should be made comfortable. Apparently the symptoms have been going on for several weeks, and patient would have wanted us to make him only comfortable. We were able to discuss goals of care. They wanted to leave the chest tube in, and slowly remove all things that would be making him uncomfortable, including drips. We discussed at length that this would almost inevitably lead to end of life, which they understood, and patient unfortunately a few hours after He was made comfort care. Additional Data Confirmation of as documented by pronouncing clinician: Pupillary Reflex, Palpable Pulses, Response to Stimuli, Heart Tones and Breath Sounds Name of Provider Notified: Dr. Peñaloza Time Provider Notified: 18:09 Was code activated?: No Provider Requests Autopsy: No Family Requests Autopsy: No Audit Specialist Notified: Yes Date [facility] Notified of : 12/03/20 Time [facility] Notified of : 18:04
== END 2020-12-03 17:42 | disposition expired | DRG 205 ==
PROVIDERS: Nurse Practitioner; Admitting Provider Internal Medicine; PCP Family Medicine; Visit Provider Internal Medicine
DX: J98.19 Other pulmonary collapse (principal); I26.99 Other pulmonary embolism without acute cor pulmonale; J18.9 Pneumonia, unspecified organism; J96.21 Acute and chronic respiratory failure with hypoxia; J96.22 Acute and chronic respiratory failure with hypercapnia; J90 Pleural effusion, not elsewhere classified; N18.4 Chronic kidney disease, stage 4 (severe); E87.2 Acidosis; J95.811 Postprocedural pneumothorax; N39.0 Urinary tract infection, site not specified; L97.909 Non-pressure chronic ulcer of unspecified part of unspecified lower leg with unspecified severity; D72.829 Elevated white blood cell count, unspecified; Z20.822 Contact with and (suspected) exposure to COVID-19; G51.0 Bell's palsy; G47.33 Obstructive sleep apnea (adult) (pediatric); R22.1 Localized swelling, mass and lump, neck; D64.9 Anemia, unspecified; I12.9 Hypertensive chronic kidney disease with stage 1 through stage 4 chronic kidney disease, or unspecified chronic kidney disease; Z96.641 Presence of right artificial hip joint; I35.0 Nonrheumatic aortic (valve) stenosis; Z66 Do not resuscitate; Z86.73 Personal history of transient ischemic attack (TIA), and cerebral infarction without residual deficits; I83.009 Varicose veins of unspecified lower extremity with ulcer of unspecified site
CPT/HCPCS: 36415; 36600; 71045; 80053; 81001; 82042; 82150; 82805; 82945; 83605; 83615; 83735; 83986; 84157; 84311; 84443; 84478; 85025; 85060; 85610; 85730; 86140; 87040; 87070; 87075; 87086; 87205; 87426; 88104; 88108; 88184; 88185; 88305; 89051; 93005; 93970; 94002; 94003; 94640; A9270; C1729; C9803; J0282; J0456; J0696; J1160; J1644; J1940; J2060